=== PATIENT | female | born 1990 | race Caucasian/White ===

== ENCOUNTER 2021-03-12 22:51 | Emergency (ER) | payer MEDICAID ==
[~2021-03-12] VITALS: Ht 175.3 cm; Wt 84.1 kg
[2021-03-13 01:52] LABS: BASOPHILS % (AUTO) 0.1 % (0-1); EOSINOPHILS # (AUTO) 0.1 X10'3 (0-0.9); EOSINOPHILS % (AUTO) 0.5 % (0-6); HEMATOCRIT 35.1 % (35.0-45.0); LYMPHOCYTES # (AUTO) 1.4 X10'3 (1.1-4.8); LYMPHOCYTES % (AUTO) 12.2 % (21-51); MEAN CORPUSCULAR HEMOGLOBIN 29.3 PG (27.0-31.0); MEAN CORPUSCULAR HGB CONC 34.1 g/dL (33.0-36.5); MEAN CORPUSCULAR VOLUME 86.1 FL (78-98); MEAN PLATELET VOLUME 6.8 FL (7.4-10.4); MONOCYTES # (AUTO) 0.5 X10'3 (0-0.9); MONOCYTES % (AUTO) 4.4 % (2-12); NEUTROPHILS # (AUTO) 9.2 X10'3 (1.8-7.7); NEUTROPHILS % (AUTO) 82.8 % (42-75); PLATELET COUNT 314 X10'3 (140-440); RED BLOOD COUNT 4.08 X10'6 (4.20-5.60); RED CELL DISTRIBUTION WIDTH 13.2 % (11.5-14.5); WHITE BLOOD COUNT 11.1 X10'3 (4.5-11.0)
[2021-03-13 02:06] LABS: ALANINE AMINOTRANSFERASE 14 U/L (12-78); ALBUMIN 3.8 G/DL (3.4-5.0); ALBUMIN/GLOBULIN RATIO 1.2 (1.1-1.5); ALKALINE PHOSPHATASE 76 IU/L (46-116); ANION GAP 5 (8-16); ASPARTATE AMINO TRANSFERASE 12 U/L (10-37); BILIRUBIN,TOTAL 0.5 MG/DL (0.1-1.0); BLOOD UREA NITROGEN 16 MG/DL (7-18); BUN/CREATININE RATIO 18.6 (6.6-38.0); CALCIUM 8.5 MG/DL (8.5-10.1); CHLORIDE 103 MMOL/L (99-107); CREATININE 0.86 MG/DL (0.40-0.90); ETHANOL < 0.010 GM/DL (0.0-0.010); GLUCOSE 99 MG/DL (70-104); POTASSIUM 3.8 MMOL/L (3.5-5.1); SODIUM 134 MMOL/L (135-145); TOTAL CARBON DIOXIDE 26.2 MMOL/L (24-32); TOTAL PROTEIN 7.1 G/DL (6.4-8.2); eGFR 78 ML/MIN
--- NOTE | 2021-03-13 02:25 | NUR ---
PT CHANGED INTO SCRUBS, BELONGINGS LIST COMPLETED. PT UNDERSTANDS HER DOG WILL NEED TO BE [facility] UNLESS THERE IS A FRIEND OR SOMEONE WHO CAN COME AND GET IT.
--- NOTE | 2021-03-13 02:31 | NUR ---
CALLED [facility] AND NEED TO CALL BACK AT 0700 WHEN THEY ARE AVAILABLE TO TAKE NON EMERGENT PHONE CALLS.
--- NOTE | 2021-03-13 02:33 | NUR ---
PT AMBULATORY TO BATHROOM WITH STEADY GAIT, ABLE TO LEAVE U/A
--- NOTE | 2021-03-13 03:00 | NUR ---
PT RESTING IN BED WITH HER DOG. HAS NO COMPLAINTS OR CONCERNS
[2021-03-13 03:23] LABS: URINE HCG NEGATIVE (NEG)
[2021-03-13] MEDS ORDERED: FLUO40CA PO (03:23)
[2021-03-13] MEDS ORDERED: VENL25TA48 PO (03:24)
[2021-03-13] MEDS ORDERED: BUPR150T8 PO (03:27)
[2021-03-13] MEDS ORDERED: DUTA0.5C40 PO (03:27)
[2021-03-13] MEDS ORDERED: PROG200C11 PO (03:27)
[2021-03-13] MEDS ORDERED: QUET-1 PO (03:29)
[2021-03-13] MEDS ORDERED: ESTR40VI4 IM (03:36)
[2021-03-13] MEDS ORDERED: BENZ1TAB7 PO (03:36)
--- NOTE | 2021-03-13 04:00 | NUR ---
PT IN BED ON RIGHT SIDE. RESPIRATIONS EVEN AND UNLABORED. SHOWS NO S/S OF ACUTE DISTRESS/
[2021-03-13 04:23] LABS: URINE AMPHETAMINE SCREEN NEGATIVE (Neg); URINE BARBITUATE SCREEN NEGATIVE (Neg); URINE BENZODIAZEPINES SCREEN NEGATIVE (Neg); URINE CANNABINOID SCREEN POSITIVE (Neg); URINE COCAINE SCREEN NEGATIVE (Neg); URINE METHADONE SCREEN NEGATIVE (Neg); URINE OPIATE SCREEN NEGATIVE (Neg); URINE PHENCYCLIDINE SCREEN NEGATIVE (Neg)
--- NOTE | 2021-03-13 05:47 | NUR ---
PT HAS DOG AT HER SIDE. PT IS DEMONSTRATING APPROPRIATE BEHAVIOR. HAS NO COMPLAINTS OR REQUESTS.
--- NOTE | 2021-03-13 05:51 | NUR ---
PACKET SENT TO [facility]
--- NOTE | 2021-03-13 07:33 | NUR ---
PT SLEEPING IN BED WITH DOG AT BEDSIDE
--- NOTE | 2021-03-13 07:42 | NUR ---
CALLED [facility], LEFT MESSAGE. AWAITING CALL BACK.
[2021-03-13] MEDS ORDERED: FLUoxetine 20mg capsule PO SCH (08:00)
[2021-03-13] MEDS ORDERED: dutasteride 0.5 MG capsule PO SCH (08:00)
[2021-03-13] MEDS ORDERED: buPROPion SR 150mg tablet PO SCH (08:00)
[2021-03-13] MEDS ORDERED: venlafaxine 25mg tablet PO SCH (08:00)
[2021-03-13 09:07] VITALS: BP 103/66
--- NOTE | 2021-03-13 09:38 | NUR ---
spoke with friend ami on phone, stated she could watch dog. pt agrees. Ami stated she was coming to get the dog.
--- NOTE | 2021-03-13 13:35 | NUR ---
Pt given d/c instructions. She refused to sign her paper. Left the department.
[2021-03-13] MEDS ORDERED: benztropine 1mg tablet PO SCH (21:00)
[2021-03-13] MEDS ORDERED: QUEtiapine 25mg tablet PO SCH (21:00)
[2021-03-13] MEDS ORDERED: progesterone, micronized 100mg capsule PO SCH (21:00)
[2021-03-15] MEDS ORDERED: ESTRADIOL VALERATE 40 MG/ML IM SCH (08:00)
== END 2021-03-13 13:38 | disposition home or self-care (01) ==
LOC: ER 22:52
DX: F43.20 Adjustment disorder, unspecified (principal); Z20.822 Contact with and (suspected) exposure to COVID-19; R45.851 Suicidal ideations; F32.9 Major depressive disorder, single episode, unspecified; Z79.899 Other long term (current) drug therapy
CPT/HCPCS: 36415; 80053; 80305; 80320; 81025; 85025; 87635; 99284; C9803

== ENCOUNTER 2021-03-27 14:53 | Inpatient (IN) | payer MEDICAID ==
[~2021-03-27] VITALS: Ht 175.3 cm; Wt 88.0 kg
[~2021-03-27 14:53] MED LIST: BENZ1TAB7 PO; BUPR150T8 PO; DUTA0.5C40 PO; ESTR40VI4 IM; FLUO40CA PO; PROG200C11 PO; QUET-1 PO; VENL25TA48 PO
[2021-03-27 15:50] LABS: BASOPHILS % (AUTO) 0 % (0-1); EOSINOPHILS % (AUTO) 0.3 % (0-6); HEMATOCRIT 35.8 % (35.0-45.0); HEMOGLOBIN 11.6 g/dl (12.0-16.0); LYMPHOCYTES # (AUTO) 1.5 X10'3 (1.1-4.8); LYMPHOCYTES % (AUTO) 12.2 % (21-51); MEAN CORPUSCULAR HEMOGLOBIN 29.4 PG (27.0-31.0); MEAN CORPUSCULAR HGB CONC 32.5 g/dL (33.0-36.5); MEAN CORPUSCULAR VOLUME 90.4 FL (78-98); MONOCYTES # (AUTO) 0.6 X10'3 (0-0.9); MONOCYTES % (AUTO) 5.1 % (2-12); NEUTROPHILS % (AUTO) 82.4 % (42-75); PLATELET COUNT 312 X10'3 (140-440); RED BLOOD COUNT 3.96 X10'6 (4.20-5.60); RED CELL DISTRIBUTION WIDTH 13.6 % (11.5-14.5); WHITE BLOOD COUNT 12.1 X10'3 (4.5-11.0)
[2021-03-27 15:58] LABS: ALANINE AMINOTRANSFERASE 22 U/L (12-78); ALBUMIN 3.6 G/DL (3.4-5.0); ALBUMIN/GLOBULIN RATIO 1.1 (1.1-1.5); ALKALINE PHOSPHATASE 74 IU/L (46-116); ANION GAP 8 (8-16); ASPARTATE AMINO TRANSFERASE 11 U/L (10-37); BILIRUBIN,TOTAL 0.2 MG/DL (0.1-1.0); BLOOD UREA NITROGEN 18 MG/DL (7-18); CALCIUM 8.7 MG/DL (8.5-10.1); CHLORIDE 107 MMOL/L (99-107); CREATININE 0.75 MG/DL (0.40-0.90); GLUCOSE 99 MG/DL (70-104); POTASSIUM 4.6 MMOL/L (3.5-5.1); SODIUM 142 MMOL/L (135-145); TOTAL CARBON DIOXIDE 27.4 MMOL/L (24-32); eGFR > 90 ML/MIN
[2021-03-27 16:07] LABS: ETHANOL < 0.010 GM/DL (0.0-0.010)
--- NOTE | 2021-03-27 16:55 | NUR ---
Received pat Overflow at 1635. Pt ambulated independently with PCT and security. [facility] wrote 5150 for DTS. Pt stating "I will kill myself if Brady (pt's partner) leaves." Pt was calm and cooperative with admissioni process. Pt changed into green scrubs and belongings list completed. Pt declined to verbally answer questions and used head and shoulder gestures. Pt currently denies suicidal thoughts, A/VH. Pt is transgender male to female. Pt has a pacifier in her mouth and wouldn't hand it over to machine sign writer. Attachment string was taken off and pt kept stuffed animal and pacifer. Pt is unkempt.
--- NOTE | 2021-03-27 17:30 | NUR ---
Urine collected and sent to laboratory.
[2021-03-27] MEDS ORDERED: VENL75CA61 PO (18:41)
[2021-03-27 18:42] LABS: URINE AMPHETAMINE SCREEN NEGATIVE (Neg); URINE BARBITUATE SCREEN NEGATIVE (Neg); URINE BENZODIAZEPINES SCREEN NEGATIVE (Neg); URINE CANNABINOID SCREEN NEGATIVE (Neg); URINE COCAINE SCREEN NEGATIVE (Neg); URINE METHADONE SCREEN NEGATIVE (Neg); URINE OPIATE SCREEN NEGATIVE (Neg); URINE PHENCYCLIDINE SCREEN NEGATIVE (Neg)
[2021-03-27] MEDS ORDERED: MIRT-116 PO (18:43)
[2021-03-27 18:50] LABS: COLOR,URINE YELLOW (Yellow); UA COLLECTION TYPE CLN CATCH MIDSTREAM
[2021-03-27 18:51] LABS: CLARITY,URINE CLEAR (Clear); GLUCOSE, URINE NEGATIVE (Neg); KETONES,URINE NEGATIVE (Neg); LEUKOCYTE ESTERASE ,URINE NEGATIVE (Neg); NITRITES, URINE NEGATIVE (Neg); OCCULT BLOOD,URINE NEGATIVE (Neg); PROTEIN,URINE NEGATIVE (Neg); UROBILINOGEN,URINE 0.2 E.U/dL (0.2-1.0)
--- NOTE | 2021-03-27 19:46 | NUR ---
The patient has been watching the nurses station holding a stuffed animal and sucking on a pacifier. She is talking in baby talk. When asked if she was a danger to herself or others she stated, "I don't know" When asked if she was having auditory or visual hallucinations she stated "I don't think so" When asked how her mood was she stated, "I don't know"
[2021-03-27] MEDS: mirtazapine 15mg tablet PO PRN (20:19)
[2021-03-27] MEDS: progesterone, micronized 100mg capsule PO SCH (20:19)
[2021-03-27] MEDS ORDERED: LORazepam 1 MG tablet PO ONE (20:40)
--- NOTE | 2021-03-27 20:41 | NUR ---
The patient up and moaning and reports high anxiety. MD made aware and orders received.
--- NOTE | 2021-03-27 20:44 | NUR ---
The patient whimpering and making frequent contact with staff at the nursing station. He is very dramatic.
--- NOTE | 2021-03-27 21:07 | NUR ---
The patient is up at the station telling staff they will have to put him in 4 point restraints but he is calm and being very manipulative.
[2021-03-27] MEDS ORDERED: OLANZapine 5mg rapidly disint. tablet PO ONE (21:15)
--- NOTE | 2021-03-28 00:01 | NUR ---
The patient appears to be sleeping
--- NOTE | 2021-03-28 01:34 | NUR ---
The patient appears to be sleeping
--- NOTE | 2021-03-28 02:31 | NUR ---
The patient appears to be sleeping
--- NOTE | 2021-03-28 04:37 | NUR ---
The patient appears to be sleeping
--- NOTE | 2021-03-28 06:30 | NUR ---
Received patient sleeping comfortably, curled up with blankets pulled up to her neck. Respirations even and unlabored.
--- NOTE | 2021-03-28 08:25 | NUR ---
Pt in bed eating breakfast. Pt was compliant with 1:1 assessment and medication. Pt continues to endorse suicidal thoughts with a plan to utilize carbon monoxide from his car. Pt states his mood "I'm sleepy." Pt was administered Zyprexa zydis last night at 2130. Pt denies auditory and visual hallucinations with a nod of his head. Pt was sleeping with the pacifer in his mouth. When asked why he uses it pt states "I don't know."
[2021-03-28] MEDS: venlafaxine XR 75mg capsule (Q24H) PO SCH (09:08)
[2021-03-28] MEDS: dutasteride 0.5 MG capsule PO SCH (09:09)
--- NOTE | 2021-03-28 10:25 | NUR ---
Pt awake talking on phone. Pt is talking baby talk and whining.
--- NOTE | 2021-03-28 11:16 | NUR ---
PACKET FAXED TO [facility] OFFICE FOR 2ND TIME. INITIALLY AT 0902.
--- NOTE | 2021-03-28 11:25 | NUR ---
Pt came up to nurses station asking "I'm a wittle hungry." Pt speaks in baby talk "I'm wittle." Machining Associate reinforced the appropriate way to speak. Pt spoke in normal tone yesterday. While tag writer spoke with pt she grabbed her stuffed animal and hid her face.
--- NOTE | 2021-03-28 13:22 | NUR ---
Pt resting comfortably, arousable by name. No distress noted.
[2021-03-28] MEDS ORDERED: [UNRECOGNIZED DRUG - CODE] TOP (14:51)
--- NOTE | 2021-03-28 15:15 | NUR ---
Pt had personal documents to include legal papers at bedside. Cementing Machine Operator suggested that papers be placed in locker. Pt at first was reluctant, but asked if feature writer could assist her in making a list of papers. Pt states "I have dyslexia and it causes me to not be able to read my own handwriting." Cementing Machine Operator assisted pt with list, encouraging her to participate. Papers were locked in #24 locker. 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 Pt states "I just can't work any more." "I am tired." "I have lived more life then most 70 year olds." "I am just tired." Pt endorses passive suicidal thoughts, at this moment has no plan. Addendum: 03/28/21 at 1531 by MARILYN Pt states the reason for the pacificer is it helps "with the oral fixation" r/t smoking. Pt states it works better than nicotine lozenges. Pt states she is trying to stop smoking r/t being on estrogen and the risk of blood clots. Pt spoke in normal tone, she did not revert to baby talk.
[2021-03-28] MEDS ORDERED: OLANZapine 5mg rapidly disint. tablet PO ONE (16:10)
--- NOTE | 2021-03-28 16:10 | NUR ---
1550 Patient banging head against the wall. RN and tech got him up to bed. Patient would not stop. Patient states "You might as well put me in restraints. I am loosing it." Patient continues to say to put him in restraints. [address] Blanchard to eval patient. Got order for 10 mg Zyprexa now and 10 mg daily. Continue to monitor.
--- NOTE | 2021-03-28 16:52 | NUR ---
Pt was administerd Zyprex zydis 10mg with effect. Pt is lying on bed talking on phone, conversation is appropriate. Pt calm.
--- NOTE | 2021-03-28 19:00 | NUR ---
Received pt awake in bed talking on telephone and has offered no complaints. Pt cooperative with assessment.
[2021-03-28] MEDS: progesterone, micronized 100mg capsule PO SCH (20:28)
[2021-03-28] MEDS: EFLORNITHINE HCL TP SCH (20:28)
[2021-03-28] MEDS: mirtazapine 15mg tablet PO PRN (20:30)
--- NOTE | 2021-03-28 21:00 | NUR ---
Pt remained on the phone for a while. When he got off, we got him a snack and his medications which he took with no issue and he requested remeron for sleep which was given. He did request more food but accepted without issue the answer of "no".
--- NOTE | 2021-03-28 23:00 | NUR ---
Pt sleeping peacefully without signs of distress.
--- NOTE | 2021-03-29 01:00 | NUR ---
Pt remains asleep without signs of distress.
--- NOTE | 2021-03-29 03:00 | NUR ---
Pt up once to the bathroom, then returned to sleep.
--- NOTE | 2021-03-29 05:00 | NUR ---
Pt up to the bathroom and then returned to bed without complaints or requests.
--- NOTE | 2021-03-29 07:00 | NUR ---
Received Pt awake and at nurses station. Pt returned to his bed and appears to be sleeping w/o distress.
[2021-03-29] MEDS: venlafaxine XR 75mg capsule (Q24H) PO SCH (08:37)
[2021-03-29] MEDS: dutasteride 0.5 MG capsule PO SCH (08:37)
[2021-03-29] MEDS: OLANZapine 5mg rapidly disint. tablet PO SCH (08:38)
[2021-03-29] MEDS: EFLORNITHINE HCL TP SCH ×2 (08:39→20:05)
--- NOTE | 2021-03-29 09:00 | NUR ---
Pt woke for breakfast and took AM meds w/o issue. Overall cooperative but demanding at times with entitled attitude throughout.
[2021-03-29] MEDS: ESTRADIOL VALERATE 200 MG/5 ML IM SCH (11:34)
--- NOTE | 2021-03-29 11:45 | NUR ---
Pt received IM estroidal w/o issue. Pt laying in bed and requesting snacks frequently.
--- NOTE | 2021-03-29 19:00 | NUR ---
Pt sitting in bed eating dinner. States +SI and has a plan to get in her car with a can of gas and drive off a [place]. States she also has some depression and anxiety. PT awaiting to transfer to [facility].
[2021-03-29] MEDS: mirtazapine 15mg tablet PO PRN (20:05)
[2021-03-29] MEDS: progesterone, micronized 100mg capsule PO SCH (20:05)
--- NOTE | 2021-03-29 20:57 | NUR ---
pt resting in bed quietly, no distress noted.
--- NOTE | 2021-03-29 21:43 | NUR ---
pt appears to be sleeping, holding a stuffed animal and sucking on a pacifier, no distress noted.
[2021-03-30] MEDS ORDERED: acetaminophen 325mg tablet PO PRN ×2 (00:10)
[2021-03-30] MEDS ORDERED: mag hydrox/Alum hydrox/simeth 30ml oral suspension PO PRN (00:10)
[2021-03-30] MEDS ORDERED: loperamide 2mg capsule PO PRN (00:10)
[2021-03-30] MEDS ORDERED: traZODone 50mg tablet PO PRN (00:10)
[2021-03-30] MEDS ORDERED: magnesium hydroxide 30ml (MOM) UD suspension PO PRN (00:10)
[2021-03-30 00:30] VITALS: BP 122/74
--- NOTE | 2021-03-30 02:31 | NUR ---
SALES SERVICE EXECUTIVE NOTE: LEGAL HOLD: 5150 for DTS PSYCH HX: ADHD, Autism Spectrum, Depression/Anxiety, Personality DO REASON FOR ADMIT: Client BIB EMS after being bitten by his therapy dog. Client reported suicidal ideation due to possible loss of therapy dog. Hx of depression and multiple suicide attempts via overdose. Client has been in [facility]. Client is currently transitioning from male to female. THIS SHIFT: Client arrived on the unit at 00:15 in a wheelchair accompanied by Xena Lee. Vital signs were obtained, client showered, and a 2 RN Skin assessment was performed. Client arrived carrying a soiled stuffed animal. This RN spoke with client in his room. Client was cooperative. Client was anxious about his appearance and wanted to shave and apply a prescription cream to his face. Levi Mitchell was present while client shaved. Abran Arce admin 10 mg Ambien PO and 1 mg Ativan PO. Client gesticulates when he talks and is emotive.
[2021-03-30] MEDS ORDERED: EFLORNITHINE HCL TP ONE (02:35)
[2021-03-30] MEDS: zolpidem 5mg tablet PO PRN ×2 (02:58→21:37)
[2021-03-30 08:00] VITALS: BP 115/75
[2021-03-30] MEDS ORDERED: naproxen sodium 220mg tablet PO SCH (08:00)
[2021-03-30] MEDS: OLANZapine 5mg rapidly disint. tablet PO SCH (08:00)
[2021-03-30] MEDS: venlafaxine XR 75mg capsule (Q24H) PO SCH (08:40)
[2021-03-30] MEDS: EFLORNITHINE HCL TP SCH ×2 (08:42→19:35)
[2021-03-30] MEDS: dutasteride 0.5 MG capsule PO SCH (08:42)
[2021-03-30] MEDS ORDERED: naproxen sodium 220mg tablet PO PRN (08:55)
[2021-03-30] MEDS: LORazepam 1 MG tablet PO PRN ×2 (09:09→17:22)
[2021-03-30] MEDS: nicotine 21mg patch - 24 hr TD SCH (09:18)
[2021-03-30] MEDS: NICOTINE POLACRILEX 2 MG LOZENGE BC PRN ×3 (15:22→19:35)
[2021-03-30] MEDS ORDERED: OLANZapine 5mg rapidly disint. tablet PO PRN (16:15)
--- NOTE | 2021-03-30 17:41 | NUR ---
Nursing Progress Note: Charisma Anthony Legal hold: 5150 Client on involuntary status for DTS Report received from Sun Méndez RN with use of SBAR Why are they here: Client BIB EMS after being bitten by her therapy dog. Client reported suicidal ideation due to possible loss of therapy dog. Hx of depression and multiple suicide attempts via overdose. Client has been in [facility]. Client is currently transitioning from male to female. Assessment What has happened this shift: Patient was observed sleeping in bed at change of shift. She joined in the community room with peers for breakfast, noted socializing appropriately. She was observed to be animated, child-like, and pleasant on this shift. She carried around a soiled stuffed animal and a rad pacifier that she regresses to when she is anxious. 1:1 assessment completed, lungs CTA. She refused her RTN Zyprexa this morning, stating that is makes her feel like a zombie. MD Navarrete notified. Patient noted pacing around the unit with her stuffed animal around 0900 endorsing anxiety over another patient on the unit. She was given PRN Ativan 1mg with effectiveness. She denies SI/HI, AH or VH. Does not appear internally preoccupied. She was observed sleeping for a couple hours later in the morning. She endorsed to this fiction writer that she is happy to be on this unit now and actually get the therapy that she needs. Patient participated in group therapy on this shift, noted engaging appropriately with peers. She was observed sitting with peers coloring a picture, watching television, and socializing appropriately throughout the day. Patient approached this fiction writer at approximately 1720 requesting PRN Ativan for c/o anxiety. Given with effectiveness. Patient participated in the community room for all meal/snack times. S/I, H/I: Pt denies A/VH: Pt denies. Does not appear internally preoccupied. Sleep: Pt slept 2.25 hours last night per NOC shift, napped for 2 hours today ADL's: Independent Group attendance: Yes Were meds taken: Patient refused RTN Zyprexa Any med S/E: None reported or observed Mental Status Exam Appearance: Freshly groomed and shaved face, colorful short hair, wearing a fancy green dress Eye contact: Good Behavior: Social with peers, polite, cooperative Speech: Clear, hyper verbal at times Mood: Happy, pleasant, hopeful, anxious at times Affect: Animated Thought process: Linear Thought Content: Meeting needs. Hopeful for future. Cognition: A&O x3 Insight: Poor Judgment: Poor Interventions PRN's used: Ativan 1mg PO Therapeutic interventions: Maintained a safe and supportive environment, 1:1 assessment, ensured contract for safety, provided clear and simple instructions, monitored behaviors and maintained clear boundaries, provided active listening and positive encouragement, monitored V/S, medication education/administration/monitoring, and maintained Q 15min safety checks. Restraints/seclusion/emergency medication: N/A Justification of Continued Inpatient Treatment: Patient continues to require a safe and therapeutic environment, medication adjustment/monitoring, and crisis intervention.
[2021-03-30 20:30] VITALS: BP 133/74
[2021-03-30] MEDS: mirtazapine 15mg tablet PO SCH (21:38)
[2021-03-30] MEDS: progesterone, micronized 100mg capsule PO SCH (21:39)
[2021-03-30] MEDS: gabapentin 300mg capsule PO SCH (21:39)
--- NOTE | 2021-03-31 02:47 | NUR ---
Nursing Progress Note: Charisma Anthony Legal hold: 5150 Client on involuntary status for DTS Report received from TRICE Ch with use of SBAR Why are they here: Client BIB EMS after being bitten by her therapy dog. Client reported suicidal ideation due to possible loss of therapy dog. Hx of depression and multiple suicide attempts via overdose. Client has been in [facility]. Client is currently transitioning from male to female. Assessment What has happened this shift: Following shift change, patient was observed walking with stuffed animal in the hallway. Patient presented with mild anxiety and came to the nursing station requesting medications on multiple occasions. 1:1 interview in patient's room. Patient was initially quiet during the interview with poor eye contact and pressured speech. With coaching and reassurance, patient became more relaxed and cooperative. Patient expresses concern about her therapy dog, which bit her as well as another person. Patient describes pending criminal charges for battery in [place]. She also expresses concern about the possibility of being housed in a male fci in [place], "and if that happens, I will kill myself." Patient identifies as female. Patient does admit to suicidal ideation, with a plan to use a lethal gas in the car that would absorb all the oxygen content, therefore enabling her to peacefully through asphyxiation. Patient describes herself as being depressed. She has a flat affect. The conversation was redirected by this fiction and nonfiction writer prose with some light humor inputted into the conversation. Patient's eye contact improved dramatically and she presents with laughter. Patient denies homicidal ideation and/or hallucinations. She is medication compliant and cooperative. She is a transgender female. S/I, H/I: Patient endorses S/I. Denies H/I. A/VH: Denies. Sleep: Will tally sleep hours at 0500. ADL's: Independent Group attendance: No group on candle molder hand. Were meds taken: Patient is medication compliant. Any med S/E: None reported or observed Mental Status Exam Appearance: Clean and well groomed. Wearing a long dress. Eye contact: Intermittent. Behavior: Pleasant and cooperative. Speech: Slow and soft. Mood: Depressed with some brightening. Affect: Blunted. Thought process: Linear. Thought Content: Feeling depressed. Concerned about her dog. Suicidal ideation and possibility of incarceration at a male fci in [place]. Cognition: A&O x4 Insight: Poor Judgment: Poor Interventions PRN's used: Ambien 5 mg PO Therapeutic interventions: Maintained a safe and supportive environment, 1:1 assessment, ensured contract for safety, provided clear and simple instructions, monitored behaviors and maintained clear boundaries, provided active listening and positive encouragement, monitored V/S, medication education/administration/monitoring, and maintained Q 15min safety checks. Restraints/seclusion/emergency medication: N/A Justification of Continued Inpatient Treatment: Patient continues to require a safe and therapeutic environment, medication adjustment/monitoring, and crisis intervention.
[2021-03-31] MEDS: gabapentin 300mg capsule PO SCH ×3 (08:09→20:58)
[2021-03-31] MEDS: dutasteride 0.5 MG capsule PO SCH (08:09)
[2021-03-31] MEDS: venlafaxine XR 75mg capsule (Q24H) PO SCH (08:09)
[2021-03-31] MEDS: EFLORNITHINE HCL TP SCH ×2 (08:10→20:58)
[2021-03-31] MEDS: nicotine 21mg patch - 24 hr TD SCH (08:10)
[2021-03-31] MEDS: methylphenidate 5mg tablet PO SCH ×2 (08:10→13:57)
[2021-03-31] MEDS: LORazepam 1 MG tablet PO PRN (08:19)
[2021-03-31 08:59] VITALS: BP 114/61
[2021-03-31] MEDS: NICOTINE POLACRILEX 2 MG LOZENGE BC PRN ×4 (09:43→19:25)
[2021-03-31 10:04] LABS: CHOLESTEROL 179 MG/DL (0-200); HDL CHOLESTEROL 60 MG/DL (35-60); LDL CHOLESTEROL 101 MG/DL (50-100); TRIGLYCERIDES 145 MG/DL (20-135)
[2021-03-31 10:09] LABS: HEMOGLOBIN A1C 4.3 % (4.5-6.2)
--- NOTE | 2021-03-31 11:52 | NUR ---
Critical lab: Lab called and pt is positive for MRSA. Spoke with pt and explained about washing hands.
--- NOTE | 2021-03-31 17:07 | NUR ---
Nursing Progress Note: Legal hold: 5150 Client on involuntary status for DTS Report received from RN with use of SBAR Why are they here: Client BIB EMS after being bitten by her therapy dog. Client reported suicidal ideation due to possible loss of therapy dog. Hx of depression and multiple suicide attempts via overdose. Client has been in [facility]. Client is currently transitioning from male to female. Assessment What has happened this shift: Received Pt in room sleeping w/o distress. Pt woke and took AM meds and was cooperative with vitals and AM assessments. Pt took AM meds w/o issue and was cooperative with anxiety and pacing of halls throughout day. Pt ate all meals in community room and socialized with females of similar age. Pt appeared anxious in AM and received prn Ativan and dominic lozs. Pt denies SI, but stated I need meds like Ativan to help me deal with life when I leave. Pt handed this RN a list of lab work that, stating it needs to be done. The list was handed to Dr Forrest and pt told to speak with him about the needed lab work. Pt used head phones throughout the day, avoiding the yelling of another Pt, which was triggering. Pt appeared less anxious in afternoon after taking a nap. Pt denies SI/HI, AH or VH. Does not appear internally preoccupied. S/I, H/I: Pt denies A/VH: Pt denies. Does not appear internally preoccupied. Sleep: Pt napped in afternoon ADL's: Independent Group attendance: NA Were meds taken: Yes Any med S/E: None reported or observed Mental Status Exam Appearance: Casual, well groomed Eye contact: Good Behavior: Social with peers, anxious, cooperative Speech: Clear, hyper verbal at times Mood: Anxious Affect: Animated Thought process: Linear Thought Content: Meeting needs Cognition: A&O x3 Insight: Poor Judgment: Poor Interventions PRN's used: Ativan 1mg, Dominic Addison. Therapeutic interventions: Maintained a safe and supportive environment, 1:1 assessment, ensured contract for safety, provided clear and simple instructions, monitored behaviors and maintained clear boundaries, provided active listening and positive encouragement, monitored V/S, medication education/administration/monitoring, and maintained Q 15min safety checks. Restraints/seclusion/emergency medication: N/A Justification of Continued Inpatient Treatment: Patient continues to require a safe and therapeutic environment, medication adjustment/monitoring, and crisis intervention.
[2021-03-31] MEDS ORDERED: clonazePAM 1mg tablet PO PRN (17:30)
[2021-03-31 19:27] VITALS: BP 122/81
[2021-03-31] MEDS: progesterone, micronized 100mg capsule PO SCH (20:58)
[2021-03-31] MEDS: mirtazapine 15mg tablet PO SCH (20:58)
--- NOTE | 2021-04-01 02:57 | NUR ---
Legal hold: 5150 Client on involuntary status for DTS Report received from Kunal Leone RN with use of SBAR Why are they here: Client BIB EMS after being bitten by her therapy dog. Client reported suicidal ideation due to possible loss of therapy dog. Hx of depression and multiple suicide attempts via overdose. Client has been in [facility]. Client is currently transitioning from male to female. Assessment What has happened this shift: Following shift change, patient was observed ambulating around the unit carrying a stuffed animal. Patient exhibited intrusive behavior, injecting herself into other patient interviews that were being conducted by this scientific writer. Patient complained of being depressed, yet he was smiling and joking at the same time. Patient requested additional food and states she needed more food in order for her breasts to continue to grow. Patient declares that she is still suicidal with the same plan as before, which was the use of lethal gas to asphyxiate herself in a vehicle. She tells this scientific writer its the most effective and most comfortable way to go. Patient denies homicidal ideation or hallucinations. S/I, H/I: Patient endorses S/I. Denies H/I. A/VH: Denies. Sleep: Will tally sleep hours at 0500. ADL's: Independent Group attendance: No group on night clerk. Were meds taken: Patient is medication compliant. Any med S/E: None reported or observed Mental Status Exam Appearance: Clean and well groomed. Wearing a dress. Eye contact: Intermittent. Behavior: Pleasant and cooperative. Speech: Slow and soft. Mood: Patient states depression but does not present as such. Affect: Blunted. Thought process: Linear. Thought Content: Feeling depressed. Concerned about her dog. Suicidal ideation and possibility of incarceration at a male half-way in [place]. Cognition: A&O x4 Insight: Poor Judgment: Poor Interventions PRN's used: Nicotine Lozenge 2mg PO Therapeutic interventions: Maintained a safe and supportive environment, 1:1 assessment, ensured contract for safety, provided clear and simple instructions, monitored behaviors and maintained clear boundaries, provided active listening and positive encouragement, monitored V/S, medication education/administration/monitoring, and maintained Q 15min safety checks. Restraints/seclusion/emergency medication: N/A Justification of Continued Inpatient Treatment: Patient continues to require a safe and therapeutic environment, medication adjustment/monitoring, and crisis intervention. Addendum: 04/01/21 at 0308 by Abran Bright RN The above should have been titled nursing progress note.
--- NOTE | 2021-04-01 03:08 | NUR ---
Nursing Progress Note Legal hold: 5150 Client on involuntary status for DTS Report received from Kunal Leone RN with use of SBAR Why are they here: Client BIB EMS after being bitten by her therapy dog. Client reported suicidal ideation due to possible loss of therapy dog. Hx of depression and multiple suicide attempts via overdose. Client has been in [facility]. Client is currently transitioning from male to female. Assessment What has happened this shift: Following shift change, patient was observed ambulating around the unit carrying a stuffed animal. Patient exhibited intrusive behavior, injecting herself into other patient interviews that were being conducted by this production underwriter. Patient complained of being depressed, yet he was smiling and joking at the same time. Patient requested additional food and states she needed more food in order for her breasts to continue to grow. Patient declares that she is still suicidal with the same plan as before, which was the use of lethal gas to asphyxiate herself in a vehicle. She tells this production underwriter its the most effective and most comfortable way to go. Patient denies homicidal ideation or hallucinations. S/I, H/I: Patient endorses S/I. Denies H/I. A/VH: Denies. Sleep: Will tally sleep hours at 0500. ADL's: Independent Group attendance: No group on night club manager. Were meds taken: Patient is medication compliant. Any med S/E: None reported or observed Mental Status Exam Appearance: Clean and well groomed. Wearing a dress. Eye contact: Intermittent. Behavior: Pleasant and cooperative. Speech: Slow and soft. Mood: Patient states depression but does not present as such. Affect: Blunted. Thought process: Linear. Thought Content: Feeling depressed. Concerned about her dog. Suicidal ideation and possibility of incarceration at a male retirement in [place]. Cognition: A&O x4 Insight: Poor Judgment: Poor Interventions PRN's used: Nicotine Lozenge 2mg PO Therapeutic interventions: Maintained a safe and supportive environment, 1:1 assessment, ensured contract for safety, provided clear and simple instructions, monitored behaviors and maintained clear boundaries, provided active listening and positive encouragement, monitored V/S, medication education/administration/monitoring, and maintained Q 15min safety checks. Restraints/seclusion/emergency medication: N/A Justification of Continued Inpatient Treatment: Patient continues to require a safe and therapeutic environment, medication adjustment/monitoring, and crisis intervention.
[2021-04-01] MEDS: dutasteride 0.5 MG capsule PO SCH (07:42)
[2021-04-01] MEDS: gabapentin 300mg capsule PO SCH ×3 (07:43→20:21)
[2021-04-01] MEDS: methylphenidate 5mg tablet PO SCH ×2 (07:43→13:20)
[2021-04-01] MEDS: venlafaxine XR 75mg capsule (Q24H) PO SCH (07:43)
[2021-04-01] MEDS: nicotine 21mg patch - 24 hr TD SCH (07:44)
[2021-04-01] MEDS: EFLORNITHINE HCL TP SCH ×2 (07:45→20:21)
[2021-04-01 08:05] VITALS: BP 111/76
[2021-04-01] MEDS: NICOTINE POLACRILEX 2 MG LOZENGE BC PRN (09:49)
--- NOTE | 2021-04-01 17:15 | NUR ---
Nursing Progress Note: [facility] [employer] hold: 5250 Client on involuntary status for DTS Report received from TRICE Osullivan with use of SBAR. Why are they here: Client BIB EMS after being bitten by her therapy dog. Client reported suicidal ideation due to possible loss of therapy dog. Hx of depression and multiple suicide attempts via overdose. Client has been in [facility]. Client is currently transitioning from male to female. Assessment What has happened this shift: Received patient awake in her room at shift change. Pt was cooperative with care and medications. Pt continues to endorse resolving suicidal thoughts pt states I just want to raise my three kids. I need a family welfare social work professor to help put my life back together. [facility] just kicked me out. Pt relates recent episode to losing her service dog. Pt feels she needs 24-hour care. I used to have my service dog and now I have no one. Pt is very friendly with a group of female peers. Talking most of the day, applying makeup and nail american. Pt states she is depressed, but at the same time she is laughing and joking. S/I, H/I: Resolving suicidal thoughts. A/VH: Pt denies. Does not appear internally preoccupied. Sleep: 6.25 hours per sleep assessment. No naps today. ADL's: Independent. Pt shaved. Group attendance: No scheduled group. Were meds taken: Yes, without issue. Any med S/E: None reported or observed Mental Status Exam Appearance: Casual, well groomed. Bright make-up, hair pulled back into two high ponytails. Eye contact: Good Behavior: Social with peers, cooperative Speech: Clear, hyper verbal at times Mood: Feeling depressed. Affect: Animated Thought process: Linear Thought Content: Meeting needs Cognition: A&O x3 Insight: Poor Judgment: Poor Interventions PRN's used: None Therapeutic interventions: Maintained a safe and supportive environment, 1:1 assessment, ensured contract for safety, provided clear and simple instructions, monitored behaviors and maintained clear boundaries, provided active listening and positive encouragement, monitored V/S, medication education/administration/monitoring, and maintained Q 15min safety checks. Restraints/seclusion/emergency medication: N/A Justification of Continued Inpatient Treatment: Patient continues to require a safe and therapeutic environment, medication adjustment/monitoring, and crisis intervention.
[2021-04-01] MEDS: mirtazapine 15mg tablet PO SCH (20:21)
[2021-04-01] MEDS: progesterone, micronized 100mg capsule PO SCH (20:21)
[2021-04-01 20:30] VITALS: BP 127/80
--- NOTE | 2021-04-02 01:06 | NUR ---
Nursing Progress Note Legal hold: 5150 Client on involuntary status for DTS Report received from TRICE Syed with use of SBAR Why are they here: Client BIB EMS after being bitten by her therapy dog. Client reported suicidal ideation due to possible loss of therapy dog. Hx of depression and multiple suicide attempts via overdose. Client has been in [facility]. Client is currently transitioning from male to female. Assessment What has happened this shift: The patient was seen in the community room at shift change. She spent the evening in the back with a couple of her female peers. They laughed a lot and seemed to be enjoying themselves as they colored. The patient carries a stuffed animal with her. After a while she went to her room and napped until snack time. Patient reports that she is still depressed and suicidal, feeling helpless and hopeless about a future without any family support. She denies HI or any AV/H. The patient ate a snack, took HS meds and went to her room. S/I, H/I: Denies HI endorses SI. A/VH: Denies. Sleep: See sleep assessment. ADL's: Independent Group attendance: No group on shift supervisor film processing. Were meds taken: Yes. Any med S/E: None reported or observed Mental Status Exam Appearance: Clean and well groomed. Wearing a Robert skirt. Eye contact: Intermittent. Behavior: Pleasant and cooperative, intrusive, guarded. Speech: Slow and soft. Mood: Depressed. Affect: Blunted. Thought process: Linear. Thought Content: Feeling depressed. Concerned about her dog. Suicidal ideation and possibility of incarceration at a male [facility]dc in [place]. Cognition: A&O x4 Insight: Poor Judgment: Poor Interventions PRN's used: Therapeutic interventions: Maintained a safe and supportive environment, 1:1 assessment, ensured contract for safety, provided clear and simple instructions, monitored behaviors and maintained clear boundaries, provided active listening and positive encouragement, monitored V/S, medication education/administration/monitoring, and maintained Q 15min safety checks. Restraints/seclusion/emergency medication: N/A Justification of Continued Inpatient Treatment: Patient continues to require a safe and therapeutic environment, medication adjustment/monitoring, and crisis intervention.
[2021-04-02 07:10] VITALS: BP 119/64
[2021-04-02] MEDS: venlafaxine XR 75mg capsule (Q24H) PO SCH (08:14)
[2021-04-02] MEDS: methylphenidate 5mg tablet PO SCH ×2 (08:14→13:06)
[2021-04-02] MEDS: gabapentin 300mg capsule PO SCH ×3 (08:14→20:15)
[2021-04-02] MEDS: nicotine 21mg patch - 24 hr TD SCH (08:15)
[2021-04-02] MEDS: dutasteride 0.5 MG capsule PO SCH (08:15)
[2021-04-02] MEDS: EFLORNITHINE HCL TP SCH ×2 (08:16→20:23)
[2021-04-02] MEDS: NICOTINE POLACRILEX 2 MG LOZENGE BC PRN ×2 (11:16→14:24)
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
[2021-04-02] MEDS: clonazePAM 1mg tablet PO PRN (18:12)
[2021-04-02 20:00] VITALS: BP 98/79
[2021-04-02] MEDS: progesterone, micronized 100mg capsule PO SCH (20:14)
[2021-04-02] MEDS: mirtazapine 15mg tablet PO SCH (20:15)
[2021-04-02] MEDS: zolpidem 5mg tablet PO PRN (20:15)
--- NOTE | 2021-04-03 02:52 | NUR ---
Nursing Progress Note Legal hold: 5150 Client on involuntary status for DTS Report received from TRICE Syed with use of SBAR Why are they here: Client BIB EMS after being bitten by her therapy dog. Client reported suicidal ideation due to possible loss of therapy dog. Hx of depression and multiple suicide attempts via overdose. Client has been in [facility]. Client is currently transitioning from male to female. Assessment What has happened this shift: The patient was seen in the community room at shift change. Her and a favorite peer were sitting in the room talking quietly. They eventually moved back to the corner and could be heard talking about how horrible their lives and families are. They stayed through snack time and med pass. She was next seen lying on the floor in her room, while her "friend" sat outside the door. S/I, H/I: Passive SI. A/VH: Denies. Sleep: See sleep assessment. ADL's: Independent Group attendance: No group on overnight associate. Were meds taken: Yes. Any med S/E: None reported or observed Mental Status Exam Appearance: Clean and well groomed. Wearing a Long skirt. Eye contact: Intermittent. Behavior: Pleasant and cooperative, intrusive, guarded. Speech: Slow and soft. Mood: Depressed. Affect: Blunted. Thought process: Linear. Thought Content: Suicidal ideation and possibility of incarceration at a male nursing home in [place]. Cognition: A&O x4 Insight: Poor Judgment: Poor Interventions PRN's used: Therapeutic interventions: Maintained a safe and supportive environment, 1:1 assessment, ensured contract for safety, provided clear and simple instructions, monitored behaviors and maintained clear boundaries, provided active listening and positive encouragement, monitored V/S, medication education/administration/monitoring, and maintained Q 15min safety checks. Restraints/seclusion/emergency medication: N/A Justification of Continued Inpatient Treatment: Patient continues to require a safe and therapeutic environment, medication adjustment/monitoring, and crisis intervention.
[2021-04-03 08:00] VITALS: BP 99/62
[2021-04-03] MEDS: gabapentin 300mg capsule PO SCH ×3 (08:36→20:46)
[2021-04-03] MEDS: venlafaxine XR 75mg capsule (Q24H) PO SCH (08:36)
[2021-04-03] MEDS: dutasteride 0.5 MG capsule PO SCH (08:36)
[2021-04-03] MEDS: nicotine 21mg patch - 24 hr TD SCH (08:36)
[2021-04-03] MEDS: methylphenidate 5mg tablet PO SCH ×2 (08:36→13:36)
[2021-04-03] MEDS: EFLORNITHINE HCL TP SCH ×2 (08:37→20:46)
[2021-04-03] MEDS: NICOTINE POLACRILEX 2 MG LOZENGE BC PRN ×3 (08:46→18:14)
[2021-04-03] MEDS: clonazePAM 1mg tablet PO PRN ×4 (11:22→21:42)
[2021-04-03] MEDS ORDERED: TIAGABINE 4 MG PO ONE (12:40)
--- NOTE | 2021-04-03 14:17 | NUR ---
Initial: Pt admit DX SI PO ~100% avg regular diet per EMR; meeting needs. LBM 04/01. No nutrition intervention at this time. Will continue to monitor. Rec: 1. continue regular diet 2. bowel care per rx 3. weekly wts Addendum: 04/03/21 at [address] Amended: Links added.
--- NOTE | 2021-04-03 16:18 | NUR ---
Nursing Progress Note: [facility] [employer] hold: Voluntary Client on involuntary status for DTS Report received from LYDIA Alejandro with use of SBAR. Why are they here: Client BIB EMS after being bitten by her therapy dog. Client reported suicidal ideation due to possible loss of therapy dog. Hx of depression and multiple suicide attempts via overdose. Client has been in [facility]. Client is currently transitioning from male to female. Assessment What has happened this shift: Received patient sleeping at shift change, respirations even and unlabored. Pt was awoken for breakfast, continues to be compliant with care and medications. In pts room securities underwriter found two of her used nicotine patches on her bed. Pts patch from yesterday (04/02) was removed. Pt states I vape 600mg of nicotine. Rolls Mill Operator educated pt on the importance of removing patches and not keeping multiple patches on. Pt states I will hid it in a different area. Intervention was placed for HS to remove patch. Pt requested PRN for anxiety as another pt was screaming and causing commotion on the unit. Pt required MR x1 dose. PRN was effective, observed pt sleeping comfortably in her room after lunch. Pt declined to attend morning group. Dr. Forrest added Gabatril (tiagabine) 4mg BID to pts medicine regimen. S/I, H/I: Suicidal thoughts in and out. Denies H/I. A/VH: Pt denies. Does not appear internally preoccupied. Sleep: 7.5 hours per sleep assessment. Afternoon nap. ADL's: Independent. Group attendance: Declined. Were meds taken: Yes, without issue. Any med S/E: None reported or observed Mental Status Exam Appearance: Pt showered. Dressed in black pants and shirt. Appropriate make up applied. Eye contact: Good Behavior: Cooperative, friendly, social with peers. Intrusive. Speech: Clear, hyper verbal at times. Intermittent voice inflection. Mood: Feeling depressed. Affect: Animated Thought process: Linear Thought Content: Meeting needs Cognition: A&O x3 Insight: Poor Judgment: Poor Interventions PRN's used: Klonopin x 2, nicotine lozenge. Therapeutic interventions: Maintained a safe and supportive environment, 1:1 assessment, ensured contract for safety, provided clear and simple instructions, monitored behaviors and maintained clear boundaries, provided active listening and positive encouragement, monitored V/S, medication education/administration/monitoring, and maintained Q 15min safety checks. Restraints/seclusion/emergency medication: N/A Justification of Continued Inpatient Treatment: Patient continues to require a safe and therapeutic environment, medication adjustment/monitoring, and crisis intervention.
[2021-04-03 20:00] VITALS: BP 118/80
[2021-04-03] MEDS: progesterone, micronized 100mg capsule PO SCH (20:45)
[2021-04-03] MEDS: TIAGABINE 4 MG PO SCH (20:45)
[2021-04-03] MEDS: mirtazapine 15mg tablet PO SCH (20:45)
--- NOTE | 2021-04-03 21:29 | NUR ---
Pt does not want to take off nicotine patch. Pt states "I sleep with my vape pen! I dont have nightmares, I have fun dreams sometimes, but I need to sleep with my nicotine patch on."
--- NOTE | 2021-04-04 03:00 | NUR ---
Nursing Progress Note: [facility] [employer] hold: Voluntary Client on involuntary status for DTS Report received from LYDIA Syed with use of SBAR. Why are they here: Client BIB EMS after being bitten by her therapy dog. Client reported suicidal ideation due to possible loss of therapy dog. Hx of depression and multiple suicide attempts via overdose. Client has been in [facility]. Client is currently transitioning from male to female. Assessment What has happened this shift: Pt was in the hallway talking with another patient at change of shift. Pt states she is suicidal if she doesnt get a good discharge plan. Pt states "I dont feel safe, so if these places keep discharging me, in a week I will be ." Pt states "Im a 15 year old girl trapped in a 30 year old lori body. I have autism and have elevated skills so people think I have higher capacity than I do, for the most part Im a scared little girl." Pt c/o anxiety requests repeat dose of clonopin before requesting prn ambien for sleep. Pt declined to remove nicotine patch at HS. S/I, H/I: passive S/I not voicing a plan Denies H/I. A/VH: Pt denies. Does not appear internally preoccupied. Sleep: see sleep hours ADL's: Independent. Group attendance: no evening groups socializes with peers Were meds taken: Yes, without issue. Any med S/E: None reported or observed Mental Status Exam Appearance: Pt showered. Dressed in black pants and shirt. Appropriate make up applied. Eye contact: Good Behavior: Cooperative, friendly, social with peers. Intrusive. Speech: Clear, hyper verbal at times. Mood: depressed Affect: Animated Thought process: Linear Thought Content: Meeting needs Cognition: A&O x3 Insight: Poor Judgment: Poor Interventions PRN's used: Klonopin x 2, nicotine lozenge. ambien Therapeutic interventions: Maintained a safe and supportive environment, 1:1 assessment, ensured contract for safety, provided clear and simple instructions, monitored behaviors and maintained clear boundaries, provided active listening and positive encouragement, monitored V/S, medication education/administration/monitoring, and maintained Q 15min safety checks. Restraints/seclusion/emergency medication: N/A Justification of Continued Inpatient Treatment: Patient continues to require a safe and therapeutic environment, medication adjustment/monitoring, and crisis intervention.
[2021-04-04 07:00] VITALS: BP 119/69
[2021-04-04] MEDS: TIAGABINE 4 MG PO SCH ×2 (08:09→21:25)
[2021-04-04] MEDS: dutasteride 0.5 MG capsule PO SCH (08:09)
[2021-04-04] MEDS: venlafaxine XR 75mg capsule (Q24H) PO SCH (08:10)
[2021-04-04] MEDS: methylphenidate 5mg tablet PO SCH ×2 (08:10→13:06)
[2021-04-04] MEDS: gabapentin 300mg capsule PO SCH ×3 (08:10→21:24)
[2021-04-04] MEDS: nicotine 21mg patch - 24 hr TD SCH (08:11)
[2021-04-04] MEDS: EFLORNITHINE HCL TP SCH ×2 (08:11→20:00)
[2021-04-04] MEDS: clonazePAM 1mg tablet PO PRN ×2 (11:39→13:11)
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
[2021-04-04] MEDS ORDERED: OLANZapine **IM** 10 mg inj. IM ONE (15:33)
--- NOTE | 2021-04-04 17:09 | NUR ---
1:1 Presenting Issues: Pt's been reporting that she's afraid to d/c because she continues to be suicidal. Interventions: Clinician met w/pt and engaged her in CBT, DBT to process her thoughts, fears and emotions associated w/d/c. At the start of session, she states, "I function as a 15 y/o girl, I can't be alone, I need to be in a skilled nursing". Clinician engaged pt in a brief functional capacity assessment to better understand her needs for dcp purposes. Pt reports that she can't manage her finances, clinician educated pt on payeeship services pt quickly declined a referral for a payee, stating, "my dad is doing that for me but he doesn't accept my trans identity". Clinician also utilized [place] strategies to provide support and encouragement for pt to move from not wanting to discharge to setting goals for d/c. Per session, pt returned to [place] from [place], to reunite w/her daughter. However, dtr's mother took her and moved out of the area, pt's been staying with her friend in [place] and became suicidal so friend brought her to the ER. Pt states, "I came her hoping that the psychiatrist can provide a letter recommending a gender change surgery so I can go to [facility] for the surgery." Clinician provided education re the medical necessity criteria for such a procedure needs to be establish with a provider who provides such treatment in an outpatient setting first, clinician offered to provide a referral to the local transgender Health clinic upon d/c, pt agreed to this and also agreed to connecting w/[facility] to continue her mental health care. Plan: Pt is accepting that she will need to d/c sometime soon and wants to maintain her stability upon d/c. Clinician will continue to provide support & engage pt in dcp activities as she can tolerate. Isabelle Doran LCSW Addendum: 04/04/21 at 1748 by Isabelle [place] Amended: Links added.
--- NOTE | 2021-04-04 17:25 | NUR ---
Nursing Progress Note: Legal hold: Voluntary Client on voluntary status for DTS Report received from LYDIA Aleajndro with use of SBAR. Why are they here: Client BIB EMS after being bitten by her therapy dog. Client reported suicidal ideation due to possible loss of therapy dog. Hx of depression and multiple suicide attempts via overdose. Client has been in [facility]. Client is currently transitioning from male to female. Assessment What has happened this shift: Patient resting quietly in bed at the start of the shift. Eats breakfast in community room and interacts appropriately with peers and staff. Cooperative with 1:1 assessment and medications. Continues to state she is suicidal if she doesnt get a good discharge plan. Argumentative and intrusive. Demanding to see a [place] fire map due to anxiety caused by all of the smoke outside. Patient is argumentative when assured that it is fog she is seeing outside and that there are no local fires that are threatening the area. Patient then changes her reasoning stating she wants to see the whole fire map for [place], as it interests her and gives her something to put her mind on besides her depression. Patient encouraged to attend group as something to put her mind on and to address issues leading to admission here. She states, I am autistic so I already know everything and Jesi studied all there is to know about my depression. Jsei been in so many hospitals already and the group they do here is an introductory course. Later approaches nursing station and states, If you give me gini Ill try to make myself go to group. I really just want to go back to my room and curl into a ball. Patient takes RAHEEMN gini then stands in doorway rubbing hands together and rocking from side to side talking about having a natural high tolerance for all medications and wishes that she could have higher doses. Also states Im autistic so I have special skills, but inside Im a 15 year old girl. 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 Insists that she is in need of someone to manage her finances and organize her life. States her dad helps her with finances at this time, but that he is transphobic so she does not want him helping anymore. Referred to sand control worker Isabelle who encourages patient to attend group but patient states she has difficulty around a lot of people especially if there are men involved. sand control worker suggests going to a later group where they will be doing art. Patient states, That sounds stupid but well see. Returns requesting second available dose of klonopin stating the first did not have the desired effect. At snack time patient is demanding hot chicken broth due to nausea. As there is no hot water left, patient is asked to wait until water warms up and snacks are passed to the other patients. Patient throws sandwich and juice on the ground and walks away. Patient returns and demands Zyprexa from this nurse during an interaction with another patient, Get me Zyprexa. Patient is asked to wait until the other patient interaction is complete to which patient exclaims, Get me Zyprexa NOW! Patient then begins hitting her head on the wall which makes a large dent. Attempted to redirect and escort patient to her room for a quieter environment and security is called. Patient then hit her head on the wall again and was restrained by CRN. While waiting for security assist patient began crying, Im actually really enjoying you holding me right now cause I am so starved for human touch! Escorted to observation room by unit staff and security and restraints placed. Patient then pulled free from restraints and began fighting against security. Code Doan called and locking restrains are placed. Provider gives order for IM Zyprexa which is administered. sand control worker sits to talk with patient and offers comfort. Patient repeats that she doesnt want to be left alone and that she is starved for human touch. Also states, I want you to know that when I ask for Zyprexa its an emergency and if you dont get it for me immediately this is whats going to happen. Patient monitored and provided weighted blanket for comfort. Once patient contracts for safety she is escorted back to her room where she rests quietly in her bed. S/I, H/I: Endorses suicidal ideation if released without a good discharge plan. A/VH: Denies Sleep: 6.25 hours per NOC. Sleeps until breakfast. ADL's: Independent. Group attendance: No Were meds taken: Yes Any med S/E: None reported or observed Mental Status Exam Appearance: Young/ middle aged female with facial stubble, short colorful hair wearing personal clothing appropriate to unit. Eye contact: Good Behavior: Intrusive, demanding, social with select peers. Speech: Clear, normal rate/ rhythm, hyper verbal at times. Mood: Depressed Affect: Animated Thought process: Circumstantial Thought Content: Expresses repeated concern of inability to care for self. Demanding attention. Cognition: A&O x4 Insight: Poor Judgment: Poor Interventions PRN's used: Gini Therapeutic interventions: Maintained a safe and supportive environment, 1:1 assessment, ensured contract for safety, provided clear and simple instructions, monitored behaviors and maintained clear boundaries, provided active listening and positive encouragement, monitored V/S, medication education/administration/monitoring, and maintained Q 15min safety checks. Restraints/seclusion/emergency medication: IM Zyprexa Justification of Continued Inpatient Treatment: Patient continues to require a safe and therapeutic environment, medication adjustment/monitoring, and crisis intervention.
--- NOTE | 2021-04-04 17:48 | NUR ---
Crisis Intervention Presenting Issues: Pt did not get what she wanted, became emotionally agitated, banged her head against lanza, became combative requiring physical restraint. Interventions: Clinician met pt while she was in restraint, provided EMDR Resourcing-Calm Breaths to support emotional grounding. Clinician also provided support for pt to narrate the traumatic experience of being taken down and placed in restraints. Pt reports that she doesn't want to be alone, and that she had wanted to be taken down because she was craving physical touching. Pt asked if she could be held, clinician explained to pt that was not going to happen but that clinician would hold her hand and help her to regulate her breathing. Clinician requested for the use of a weighted blanket as pt had described feeling comforted when her service dog lie on her chest, pt's RN brought her a weighted blanket this appears to calm pt. Plan: Clinician will check in w/pt tomorrow. Isabelle oDran LCSW Addendum: 04/04/21 at 1757 by Isabelle Doran SS Amended: Links added.
[2021-04-04] MEDS: progesterone, micronized 100mg capsule PO SCH (21:24)
[2021-04-04] MEDS: mirtazapine 15mg tablet PO SCH (21:25)
--- NOTE | 2021-04-04 23:56 | NUR ---
Nursing Progress Note: Legal hold: 5250 Client on involuntary status for DTS Report received from LYDIA Syed with use of SBAR. Why are they here: Client BIB EMS after being bitten by her therapy dog. Client reported suicidal ideation due to possible loss of therapy dog. Hx of depression and multiple suicide attempts via overdose. Client has been in [facility]. Client is currently transitioning from male to female. Assessment What has happened this shift: Patient resting quietly in bed at the start of the shift with weighted blanket in use and holding a stuffed animal sucking on a pacifier. Sleeps through dinner and snack but awakens just after 21:00. Interacting appropriately with staff and peers. Cooperative with medication and 1:1 assessment. S/I, H/I: Endorses suicidal ideation if released without a good discharge plan. A/VH: Denies Sleep: See sleep assessment ADL's: Independent. Group attendance: N/A Were meds taken: Yes Any med S/E: Fatigued Mental Status Exam Appearance: Young/ middle aged female with facial stubble, short colorful hair wearing personal clothing appropriate to unit. Eye contact: Good Behavior: Cooperative Speech: Clear, normal rate/ rhythm Mood: Depressed Affect: Blunted Thought process: Circumstantial Thought Content: Meeting needs Cognition: A&O x4 Insight: Poor Judgment: Poor Interventions PRN's used: None Therapeutic interventions: Maintained a safe and supportive environment, 1:1 assessment, ensured contract for safety, provided clear and simple instructions, monitored behaviors and maintained clear boundaries, provided active listening and positive encouragement, monitored V/S, medication education/administration/monitoring, and maintained Q 15min safety checks. Restraints/seclusion/emergency medication: None Justification of Continued Inpatient Treatment: Patient continues to require a safe and therapeutic environment, medication adjustment/monitoring, and crisis intervention.
--- NOTE | 2021-04-04 23:58 | NUR ---
Refuses to remove Nicotine patch at HS. States, "It messes me all up." CRN notified.
[2021-04-05 08:00] VITALS: BP 114/74
[2021-04-05] MEDS: ESTRADIOL VALERATE 200 MG/5 ML IM SCH ×2 (08:00→21:00)
[2021-04-05] MEDS: gabapentin 300mg capsule PO SCH ×3 (08:48→20:48)
[2021-04-05] MEDS: TIAGABINE 4 MG PO SCH ×2 (08:48→20:48)
[2021-04-05] MEDS: methylphenidate 5mg tablet PO SCH ×2 (08:48→13:11)
[2021-04-05] MEDS: venlafaxine XR 75mg capsule (Q24H) PO SCH (08:49)
[2021-04-05] MEDS: nicotine 21mg patch - 24 hr TD SCH (08:51)
[2021-04-05] MEDS: dutasteride 0.5 MG capsule PO SCH (09:47)
[2021-04-05] MEDS: EFLORNITHINE HCL TP SCH ×2 (11:01→21:03)
[2021-04-05] MEDS: clonazePAM 1mg tablet PO PRN (11:23)
[2021-04-05] MEDS: NICOTINE POLACRILEX 2 MG LOZENGE BC PRN ×3 (11:41→17:02)
--- NOTE | 2021-04-05 17:25 | NUR ---
Nursing Progress Note: Charisma Anthony Legal hold: 5250 Client on involuntary status for DTS Report received from TRICE Alejandro with use of SBAR. Why are they here: Client BIB EMS after being bitten by her therapy dog. Client reported suicidal ideation due to possible loss of therapy dog. Hx of depression and multiple suicide attempts via overdose. Client has been in [facility]. Client is currently transitioning from male to female. Assessment What has happened this shift: Received patient sleeping in her room. She awoke to receive her medication and 1:1 assessment completed. Pt. reports S/I with a plan, but will not elaborate or disclose any information. Pt. proceeded to breakfast with cohorts and self-isolated the rest of the morning. Pt. approached production underwriter reporting I cant go to group because I need medication, im going through so much right now PRN for anxiety Klonopin given. Pt returned a few minutes later wrapped in a blanket with her stuffed animal and a pacifier in her mouth, she sat near production underwriter for 20min. Pt. later ate lunch in the dining room and was observed laughing with peers at the table. Pt. approached production underwriter requesting a second dose of Klonopin; too early for medication offered Olazapine, and she refused. Later pt. requested nicotine lozenge primary changed order to Qhr. S/I, H/I: +SI, denies HI A/VH: Denies, Does not appear internally preoccupied. Sleep: 9.2 hours per sleep assessment, with naps this shift. ADL's: Independent. Group attendance: No Were meds taken: Yes Any med S/E: None reported or observed Mental Status Exam Appearance: Disheveled, wearing street clothes. Colorful make up. Eye contact: Good Behavior: Social with peers, cooperative, dramatic today. Intrusive. Speech: Clear. Mood: Feeling depressed. Affect: Animated Thought process: Linear Thought Content: Meeting needs Cognition: A&O x4 Insight: Poor Judgment: Poor Interventions PRN's used: Klonopin, nicotine lozenge Therapeutic interventions: Maintained a safe and supportive environment, 1:1 assessment, ensured contract for safety, provided clear and simple instructions, monitored behaviors and maintained clear boundaries, provided active listening and positive encouragement, monitored V/S, medication education/administration/monitoring, and maintained Q 15min safety checks. Restraints/seclusion/emergency medication: N/A Justification of Continued Inpatient Treatment: Patient continues to require a safe and therapeutic environment, medication adjustment/monitoring, and crisis intervention.
[2021-04-05 19:00] VITALS: BP 104/63
[2021-04-05] MEDS: progesterone, micronized 100mg capsule PO SCH (20:48)
[2021-04-05] MEDS: mirtazapine 15mg tablet PO SCH (20:48)
--- NOTE | 2021-04-05 23:11 | NUR ---
Nursing Progress Note: Legal hold: 5250 Client on involuntary status for DTS Report received from LYDIA Syed with use of SBAR. Why are they here: Client BIB EMS after being bitten by her therapy dog. Client reported suicidal ideation due to possible loss of therapy dog. Hx of depression and multiple suicide attempts via overdose. Client has been in [facility]. Client is currently transitioning from male to female. Assessment What has happened this shift: Patient observed sleeping at the beginning of shift; she was provided dinner after waking. Patient is mostly pleasant and cooperative, becomes irritable if she believes needs are not being quick enough. Patient denies SI, HI, A/VH this shift; states, "I'm surprisingly feeling really good right now." Compliant with all medication. She received Estradiol injection post lab draw. Refused to remove Nicotine patch and claims to not have nightmares while wearing it during sleep. Patient shaved arms and face this shift. She participated in HS snack prior to bed; observed sleeping and does not appear to be having difficulty. S/I, H/I: Denies A/VH: Denies Sleep: Refer to sleep assessment ADL's: Independent. Group attendance: NA Were meds taken: Yes Any med S/E: None observed or reported Mental Status Exam Appearance: Well groomed, wearing mismatched personal clothing Eye contact: Good Behavior: Cooperative, social Speech: Clear, normal rate/ rhythm Mood: Labile Affect: Blunted Thought process: Circumstantial Thought Content: Meeting needs, sex change, family Cognition: A&O x4 Insight: Poor Judgment: Poor Interventions PRN's used: None Therapeutic interventions: Maintained a safe and supportive environment, 1:1 assessment, ensured contract for safety, provided clear and simple instructions, monitored behaviors and maintained clear boundaries, provided active listening and positive encouragement, monitored V/S, medication education/administration/monitoring, and maintained Q 15min safety checks. Restraints/seclusion/emergency medication: None Justification of Continued Inpatient Treatment: Patient continues to require a safe and therapeutic environment, medication adjustment/monitoring, and crisis intervention.
[2021-04-06] MEDS: ESTRADIOL VALERATE 200 MG/5 ML IM SCH (04:25)
[2021-04-06 08:00] VITALS: BP 113/63
[2021-04-06] MEDS: venlafaxine XR 75mg capsule (Q24H) PO SCH (08:39)
[2021-04-06] MEDS: EFLORNITHINE HCL TP SCH ×2 (08:40→20:00)
[2021-04-06] MEDS: TIAGABINE 4 MG PO SCH ×2 (08:40→20:00)
[2021-04-06] MEDS: dutasteride 0.5 MG capsule PO SCH (08:40)
[2021-04-06] MEDS: methylphenidate 5mg tablet PO SCH ×2 (08:40→13:24)
[2021-04-06] MEDS: gabapentin 300mg capsule PO SCH ×3 (08:40→21:00)
[2021-04-06] MEDS: nicotine 21mg patch - 24 hr TD SCH (08:53)
[2021-04-06] MEDS: clonazePAM 1mg tablet PO PRN ×2 (09:16→17:18)
[2021-04-06] MEDS: NICOTINE POLACRILEX 2 MG LOZENGE BC PRN (09:18)
--- NOTE | 2021-04-06 17:18 | NUR ---
Nursing Progress Note: Legal hold: 5250 Client on involuntary status for DTS Report received from LYDIA Ch with use of SBAR. Why are they here: Client BIB EMS after being bitten by her therapy dog. Client reported suicidal ideation due to possible loss of therapy dog. Hx of depression and multiple suicide attempts via overdose. Client has been in [facility]. Client is currently transitioning from male to female. Assessment What has happened this shift: Patient resting quietly in bed at the start of the shift. Eats meals in community room and interacts appropriately with staff and peers. Socializes with staff and peers and is friendly/ hyperverbal. After lunch patient takes a nap. PRN Klonopin given for anxiety which appears helpful. Patient states, I am just so starved for human touch, can I just get a hug? Upper back rub given for comfort as well as chicken broth as patient states the warm broth, Is like a hug from the inside. Patient continues to be hyperverbal throughout the day. S/I, H/I: Denies A/VH: Denies Sleep: see sleep assessment ADL's: Independent. Group attendance: No Were meds taken: Yes Any med S/E: None observed or reported Mental Status Exam Appearance: Middle aged person with facial stubble wearing womens clothing, disheveled colorful hair. Eye contact: Good Behavior: Social, hyper verbal, cooperative, attention seeking. Speech: Clear, normal rate/ rhythm, hyper verbal Mood: Im okay I guess. Affect: Animated Thought process: Tangential Thought Content: Gender identity, legal issues, flight of ideas. Cognition: A&O x4 Insight: Poor Judgment: Poor Interventions PRN's used: None Therapeutic interventions: Maintained a safe and supportive environment, 1:1 assessment, ensured contract for safety, provided clear and simple instructions, monitored behaviors and maintained clear boundaries, provided active listening and positive encouragement, monitored V/S, medication education/administration/monitoring, and maintained Q 15min safety checks. Restraints/seclusion/emergency medication: None Justification of Continued Inpatient Treatment: Patient continues to require a safe and therapeutic environment, medication adjustment/monitoring, and crisis intervention.
[2021-04-06] MEDS ORDERED: LORazepam 2 mg/ml vial IM ONE (19:45)
[2021-04-06] MEDS ORDERED: OLANZapine **IM** 10 mg inj. IM ONE (19:45)
[2021-04-06] MEDS ORDERED: LORazepam 2 mg/ml vial ONE (19:49)
[2021-04-06] MEDS ORDERED: haloperidol lactate 5mg/ml inj ONE (19:49)
[2021-04-06 19:58] VITALS: BP 109/65
[2021-04-06] MEDS: mirtazapine 15mg tablet PO SCH (21:00)
[2021-04-06] MEDS: progesterone, micronized 100mg capsule PO SCH (21:00)
[2021-04-06] MEDS ORDERED: haloperidol lactate 5mg/ml inj IM ONE (23:15)
--- NOTE | 2021-04-06 23:54 | NUR ---
Nursing Progress Note: Legal hold: 5250 Client on involuntary status for DTS Report received from LYDIA Syed with use of SBAR. Why are they here: Client BIB EMS after being bitten by her therapy dog. Client reported suicidal ideation due to possible loss of therapy dog. Hx of depression and multiple suicide attempts via overdose. Client has been in [facility]. Client is currently transitioning from male to female. Assessment What has happened this shift: Patient observed talking with the doctor at the beginning of shift. Shortly after ending the conversation with the doctor patient came out c/o "not getting the attention needed" to a female peer. Patient continued to report "being deprived of human touch" and requesting that peer gave her a hug. After peer denied, patient then laid onto the floor. Bmx Rider asked several times that the patient sit up or if she needed to lay down that she do so in her bed. Patient responded, "my body says no." Bmx Rider began walked away she began listing off demands. Peer reported patient was threatening to kill herself if she was discharged to the mission. Patient began hitting her head on the floor and Wil GONSALES, notified and orders for Haldol 10mg IM and Ativan 2mg IM ordered. Patient walked to her room with security and staff standing by; received injections without difficulty. Patient has remained in bed; observed sleeping and does not appear to be having difficulty. S/I, H/I: Passive SI A/VH: Denies Sleep: Refer to sleep assessment ADL's: Independent. Group attendance: NA Were meds taken: Yes Any med S/E: None observed or reported Mental Status Exam Appearance: Well groomed, wearing personal clothing Eye contact: Good Behavior: Impulsive, agitated, attention seeking Speech: Clear, normal rate/ rhythm Mood: Labile Affect: Congruent to mood Thought process: Thought Content: Meeting needs Cognition: A&O x4 Insight: Poor Judgment: Poor Interventions PRN's used: None Therapeutic interventions: Maintained a safe and supportive environment, 1:1 assessment, ensured contract for safety, provided clear and simple instructions, monitored behaviors and maintained clear boundaries, provided active listening and positive encouragement, monitored V/S, medication education/administration/monitoring, and maintained Q 15min safety checks. Restraints/seclusion/emergency medication: Haldol 10mg IM and Ativan 2mg IM Justification of Continued Inpatient Treatment: Patient continues to require a safe and therapeutic environment, medication adjustment/monitoring, and crisis intervention.
[2021-04-07 08:00] VITALS: BP 120/70
[2021-04-07 08:18] LABS: SEX HORM BINDING GLOB, SERUM 81.8 nmol/L (24.6-122.0)
[2021-04-07] MEDS: dutasteride 0.5 MG capsule PO SCH (08:43)
[2021-04-07] MEDS: gabapentin 300mg capsule PO SCH ×3 (08:43→20:18)
[2021-04-07] MEDS: venlafaxine XR 75mg capsule (Q24H) PO SCH (08:43)
[2021-04-07] MEDS: TIAGABINE 4 MG PO SCH ×2 (08:43→20:18)
[2021-04-07] MEDS: methylphenidate 5mg tablet PO SCH ×2 (08:43→13:16)
[2021-04-07] MEDS: EFLORNITHINE HCL TP SCH ×2 (08:44→20:00)
[2021-04-07] MEDS: nicotine 21mg patch - 24 hr TD SCH (08:45)
[2021-04-07 15:05] LABS: PROGESTERONE 1.3 ng/mL (.)
--- NOTE | 2021-04-07 16:33 | NUR ---
Nursing Progress Note: Legal hold: 5250 Client on involuntary status for DTS Report received from nurse with use of SBAR: TRICE Syed Why are they here: Client BIB EMS after being bitten by her therapy dog. Client reported suicidal ideation due to possible loss of therapy dog. Hx of depression and multiple suicide attempts via overdose. Client has been in [facility]. Client is currently transitioning from male to female. Assessment What has happened this shift: Received pt. sleeping in bed at the beginning of the shift, clutching a stuffed animal, she remained here throughout the shift getting up only for meals. 1:1 completed at bedside, pt. reports she slept well and states in a joking way, "I'm still doing it." She is compliant with all medications, however did again try to obtain more than one nicotine patch (reporting her old patch had been removed, but was found to be in place by this health technical writer). Pt. denies any S/I, however reports she is, "Really depressed." When questioned further regarding the cause for her depression, pt. states in a guarded manner, "Just life." This health technical writer attempted to provide further active listening and therapeutic communication, however pt. stated, "I don't feel like talking. I just want to lay here." She [id number] here throughout the day. S/I, H/I: Denies, states, "I don't have the energy." A/VH: Denies, does not appear to be responding to internal stimuli Sleep: Sleep hours are 7.5, however pt. remains in bed throughout the shift, getting up only to attend meals. ADL's: Requires some encouragement Group attendance: N/A Were meds taken: Yes Any med S/E: None Mental Status Exam Appearance: Hair and clothing disheveled r/t laying in bed Eye contact: Moderate Behavior: Cooperative, fatigued, guarded, and isolative Speech: Soft, WNL Mood: Guarded and depressed Affect: Constricted Thought process: Poverty of thought with possible thought blocking Thought Content: Perseveration on depressed mood Cognition: A&O X3 (not to month) Insight: Poor Judgment: Poor Interventions PRN's used: None Therapeutic interventions: Introduced self and established rapport, maintained a safe and supportive environment, ensured contract for safety, provided clear and simple instructions, provided active listening and positive encouragement, maintained clear boundaries, and maintained Q 15mi min safety checks. Restraints/seclusion/emergency medication: N/A Justification of Continued Inpatient Treatment: Per DRU Melara, pt. continues to require as safe and supportive environment and clear boundaries. Will encourage her to contact friends to set up resources.
[2021-04-07 20:01] VITALS: BP 116/65
[2021-04-07] MEDS: progesterone, micronized 100mg capsule PO SCH (20:19)
[2021-04-07] MEDS: mirtazapine 15mg tablet PO SCH (20:19)
--- NOTE | 2021-04-07 23:51 | NUR ---
Nursing Progress Note: Legal hold: 5250 Client on involuntary status for DTS Report received from LYDIA Mckeon with use of SBAR. Why are they here: Client BIB EMS after being bitten by her therapy dog. Client reported suicidal ideation due to possible loss of therapy dog. Hx of depression and multiple suicide attempts via overdose. Client has been in [facility]. Client is currently transitioning from male to female. Assessment What has happened this shift: Patient observed sleeping in bed at the beginning of shift. Pleasant and cooperative with care; compliant with medication. Nicotine patch remains on patient. She refused Eflornithine cream this shift. No reports of SI, HI, A/VH this shift. Patient has remained in bed; observed sleeping and does not appear to be having difficulty. S/I, H/I: None reported A/VH: None reported Sleep: Refer to sleep assessment ADL's: Independent. Group attendance: NA Were meds taken: Yes Any med S/E: None observed or reported Mental Status Exam Appearance: Well groomed, wearing personal clothing Eye contact: Good Behavior: Pleasant and cooperative, sleeping Speech: Clear, normal rate/ rhythm Mood: Fatigued Affect: Congruent to mood Thought process: Linear Thought Content: Meeting needs Cognition: A&O x4 Insight: Poor Judgment: Poor Interventions PRN's used: None Therapeutic interventions: Maintained a safe and supportive environment, 1:1 assessment, ensured contract for safety, provided clear and simple instructions, monitored behaviors and maintained clear boundaries, provided active listening and positive encouragement, monitored V/S, medication education/administration/monitoring, and maintained Q 15min safety checks. Restraints/seclusion/emergency medication: Haldol 10mg IM and Ativan 2mg IM Justification of Continued Inpatient Treatment: Patient continues to require a safe and therapeutic environment, medication adjustment/monitoring, and crisis intervention.
[2021-04-08] MEDS: EFLORNITHINE HCL TP SCH ×2 (08:00→20:34)
[2021-04-08 08:21] VITALS: BP 120/64
[2021-04-08] MEDS: venlafaxine XR 75mg capsule (Q24H) PO SCH (09:01)
[2021-04-08] MEDS: gabapentin 300mg capsule PO SCH ×3 (09:01→20:34)
[2021-04-08] MEDS: TIAGABINE 4 MG PO SCH ×2 (09:02→20:34)
[2021-04-08] MEDS: methylphenidate 5mg tablet PO SCH ×2 (09:02→15:11)
[2021-04-08] MEDS: nicotine 21mg patch - 24 hr TD SCH (09:02)
[2021-04-08] MEDS: dutasteride 0.5 MG capsule PO SCH (09:03)
[2021-04-08] MEDS: clonazePAM 1mg tablet PO PRN ×2 (10:38→16:53)
[2021-04-08] MEDS: NICOTINE POLACRILEX 2 MG LOZENGE BC PRN ×3 (10:42→16:57)
--- NOTE | 2021-04-08 14:41 | NUR ---
Nursing Progress Note: Legal hold: 5250 Client on involuntary status for DTS Report received from nurse with use of SBAR: TRICE Syed Why are they here: Client BIB EMS after being bitten by her therapy dog. Client reported suicidal ideation due to possible loss of therapy dog. Hx of depression and multiple suicide attempts via overdose. Client has been in [facility]. Client is currently transitioning from male to female. Assessment What has happened this shift: Received pt. sleeping in bed at the beginning of the shift, clutching a stuffed animal, and sucking a pacifier. 1:1 completed at bedside, pt. reports she slept well, She is compliant with all medications. patient came to nurses charting area about 11am stating "I might need a prn here soon", this singer songwriter asked patient what was giving her anxiety, patient went on to say "it is a physical feeling not in my mind, oh never mind I will take a nicotine annabella, quickly after that patient did ask for Klonopin 2mg, Charisma chewed her Klonopin" "It gives me a sublingo feeling of calm, I like to chew my meds". Patient then laid on the floor in front of the nurses station and refused to move, "you will have to move me if you want me to move, i just want someone to hold me like a mother". Patient went on and on about her Children and her year transition male to female, "now my is a lesbian without even trying, carnes I think that is keagan funny we are still ". S/I, H/I: Denies, although states "if I have to live alone I don't think I can do it" A/VH: Denies, does not appear to be responding to internal stimuli Sleep: pt. remains in bed throughout the shift, getting up only to attend meals. ADL's: Requires some encouragement Group attendance: N/A Were meds taken: Yes Any med S/E: None Mental Status Exam Appearance: Hair and clothing disheveled r/t laying in bed Eye contact: Moderate Behavior: Cooperative, fatigued, guarded, and isolative Speech: Soft, WNL Mood: Guarded and depressed Affect: Constricted Thought process: Poverty of thought with possible thought blocking Thought Content: Perseveration on depressed mood Cognition: A&O X3 (not to month) Insight: Poor Judgment: Poor Interventions PRN's used: None Therapeutic interventions: Introduced self and established rapport, maintained a safe and supportive environment, ensured contract for safety, provided clear and simple instructions, provided active listening and positive encouragement, maintained clear boundaries, and maintained Q 15mi min safety checks. Restraints/seclusion/emergency medication: N/A Justification of Continued Inpatient Treatment: Patient continues to endorse S/I if discharged to live alone. 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 Patient is liable and unable to make a safe discharge plan, if discharged today patient would be at risk for re-admission. Addendum: 04/08/21 at 1655 by Nicole Carty RN [id number] Klonopin 2mg prn for "anxiety" so she says
[2021-04-08 19:37] VITALS: BP 111/75
[2021-04-08] MEDS: mirtazapine 15mg tablet PO SCH (20:34)
[2021-04-08] MEDS: zolpidem 5mg tablet PO PRN (20:34)
[2021-04-08] MEDS: progesterone, micronized 100mg capsule PO SCH (20:36)
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
[2021-04-09 07:00] VITALS: BP 108/62
[2021-04-09] MEDS: EFLORNITHINE HCL TP SCH (08:00)
[2021-04-09] MEDS: dutasteride 0.5 MG capsule PO SCH (08:47)
[2021-04-09] MEDS: TIAGABINE 4 MG PO SCH (08:47)
[2021-04-09] MEDS: gabapentin 300mg capsule PO SCH ×2 (08:47→12:58)
[2021-04-09] MEDS: nicotine 21mg patch - 24 hr TD SCH (08:47)
[2021-04-09] MEDS: methylphenidate 5mg tablet PO SCH ×2 (08:48→12:58)
[2021-04-09] MEDS: venlafaxine XR 75mg capsule (Q24H) PO SCH (08:48)
[2021-04-09] MEDS: clonazePAM 1mg tablet PO PRN (09:03)
[2021-04-09] MEDS: NICOTINE POLACRILEX 2 MG LOZENGE BC PRN ×2 (11:29→13:32)
[2021-04-09] MEDS ORDERED: MIRT-88 PO (13:17)
[2021-04-09] MEDS ORDERED: TIAG4TAB34 PO (13:17)
[2021-04-09] MEDS ORDERED: VENL75CA61 PO (13:17)
[2021-04-09] MEDS ORDERED: gabapentin capsule PO (13:17)
--- NOTE | 2021-04-09 13:35 | NUR ---
Discharge Note: Patient is discharge to Access today to review services at [facility], then staying with a friend. Patient agrees with the discharge plan, denies S/I and H/I, rather is very happy to be leaving so she can Vap to the amount of nicotine she is used to smoking each day. Follow-Up: Patient has been scheduled/referred to the following providers for post-hospital discharge and aftercare treatment. Psychiatrist: Upon discharge, you can complete an intake with [facility] and schedule your post-hospital medication appointment. [address] [id number] Transgender Health: You will need to complete a new patient intake/registration at [facility], meet with a primary care provider there to access an appointment at the [facility]. Primary Care Provider: A new Patient intake/registration packet for [facility] is included with your discharge packet, you will need to complete this packet and walk in at [facility] to access a primary care appointment [facility] [address] [place] [address] HOURS OF OPERATION: Friday - 8 am to 8 pm Friday 8 am to 5 pm Saturdays 9 am to 1 pm - Closed from 8 am to 9:30 am on the first Friday of every month Discharge Address: Home/[facility] Home: [address] [address] [address]NRM: [address] [address] Transportation: [facility]/[place] Patient given community crisis services information and National suicide hotline handout. Please call [phone] for your second outpatient smoking cessation appointment. Resources for education regarding mental illness: [facility] [address] [place], [place] [id number] For urgent mental health crisis needs please contact Mobile Crisis Outreach Team Friday through Friday 8:30a to 5:00pm. Mobile Crisis Outreach Team [address] [place] [address]
[2021-04-10 13:20] LABS: TESTOSTERONE, FREE, DIRECT 2.6 pg/mL (0.0-4.2)
== END 2021-04-09 14:05 | disposition home or self-care (01) | DRG 751 ==
LOC: ER 14:54 → ED HOLD 03-29 15:10 → ADULT MH 03-30 00:05
PROVIDERS: ADMIT Psychiatry & Neurology Psychiatry; ATTEND Psychiatry & Neurology Psychiatry
DX: F33.9 Major depressive disorder, recurrent, unspecified (principal); R45.851 Suicidal ideations; E11.9 Type 2 diabetes mellitus without complications; Z20.822 Contact with and (suspected) exposure to COVID-19; I10 Essential (primary) hypertension; F43.10 Post-traumatic stress disorder, unspecified; F90.9 Attention-deficit hyperactivity disorder, unspecified type; F17.210 Nicotine dependence, cigarettes, uncomplicated; F43.20 Adjustment disorder, unspecified; F60.9 Personality disorder, unspecified; G47.30 Sleep apnea, unspecified; Z79.899 Other long term (current) drug therapy; Z88.8 Allergy status to other drugs, medicaments and biological substances; Z91.410 Personal history of adult physical and sexual abuse
CPT/HCPCS: 36415; 80053; 80061; 80305; 80320; 81003; 82670; 82679; 83036; 84144; 84270; 84402; 84443; 85025; 87081; 87635; 99285; C9803; G0378; J1630; J2060; J3490

== ENCOUNTER 2021-04-16 12:22 | Emergency (ER) | payer SELFPAY ==
[~2021-04-16] VITALS: Ht 175.3 cm; Wt 85.0 kg
[~2021-04-16 12:22] MED LIST changes: -BENZ1TAB7 PO; -BUPR150T8 PO; -FLUO40CA PO; +MIRT-88 PO; -QUET-1 PO; +TIAG4TAB34 PO; -VENL25TA48 PO; +VENL75CA61 PO; +[UNRECOGNIZED DRUG - CODE] TOP; +gabapentin capsule PO
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
[2021-04-16 13:07] LABS: BASOPHILS % (AUTO) 0.2 % (0-1); EOSINOPHILS % (AUTO) 0.3 % (0-6); HEMOGLOBIN 12.1 g/dl (12.0-16.0); LYMPHOCYTES # (AUTO) 1.1 X10'3 (1.1-4.8); LYMPHOCYTES % (AUTO) 11.4 % (21-51); MEAN CORPUSCULAR HGB CONC 33.6 g/dL (33.0-36.5); MEAN CORPUSCULAR VOLUME 89.3 FL (78-98); MEAN PLATELET VOLUME 6.3 FL (7.4-10.4); MONOCYTES # (AUTO) 0.5 X10'3 (0-0.9); MONOCYTES % (AUTO) 4.9 % (2-12); NEUTROPHILS # (AUTO) 8.3 X10'3 (1.8-7.7); NEUTROPHILS % (AUTO) 83.2 % (42-75); PLATELET COUNT 302 X10'3 (140-440); RED BLOOD COUNT 4.03 X10'6 (4.20-5.60); RED CELL DISTRIBUTION WIDTH 13.8 % (11.5-14.5)
[2021-04-16 13:20] LABS: ALANINE AMINOTRANSFERASE 43 U/L (12-78); ALBUMIN 3.8 G/DL (3.4-5.0); ALBUMIN/GLOBULIN RATIO 1.1 (1.1-1.5); ALKALINE PHOSPHATASE 74 IU/L (46-116); ANION GAP 8 (8-16); ASPARTATE AMINO TRANSFERASE 19 U/L (10-37); BILIRUBIN,TOTAL 0.2 MG/DL (0.1-1.0); BLOOD UREA NITROGEN 11 MG/DL (7-18); BUN/CREATININE RATIO 15.5 (6.6-38.0); CALCIUM 8.6 MG/DL (8.5-10.1); CHLORIDE 106 MMOL/L (99-107); CREATININE 0.71 MG/DL (0.40-0.90); ETHANOL < 0.010 GM/DL (0.0-0.010); GLUCOSE 101 MG/DL (70-104); POTASSIUM 4.1 MMOL/L (3.5-5.1); SODIUM 141 MMOL/L (135-145); TOTAL CARBON DIOXIDE 26.8 MMOL/L (24-32); TOTAL PROTEIN 7.4 G/DL (6.4-8.2); eGFR > 90 ML/MIN
--- NOTE | 2021-04-16 13:30 | NUR ---
Patient did not eat any of her lunch. No distress observed at this time. Continue to monitor.
[2021-04-16 14:00] LABS: CLARITY,URINE CLEAR (Clear); COLOR,URINE YELLOW (Yellow); GLUCOSE, URINE NEGATIVE (Neg); KETONES,URINE NEGATIVE (Neg); LEUKOCYTE ESTERASE ,URINE NEGATIVE (Neg); NITRITES, URINE NEGATIVE (Neg); OCCULT BLOOD,URINE NEGATIVE (Neg); PH,URINE 6.5 (4.8-8.0); PROTEIN,URINE NEGATIVE (Neg); UA COLLECTION TYPE CLN CATCH MIDSTREAM; UROBILINOGEN,URINE 0.2 E.U/dL (0.2-1.0)
[2021-04-16 14:06] LABS: URINE AMPHETAMINE SCREEN NEGATIVE (Neg); URINE BARBITUATE SCREEN NEGATIVE (Neg); URINE BENZODIAZEPINES SCREEN NEGATIVE (Neg); URINE CANNABINOID SCREEN POSITIVE (Neg); URINE COCAINE SCREEN NEGATIVE (Neg); URINE METHADONE SCREEN NEGATIVE (Neg); URINE OPIATE SCREEN NEGATIVE (Neg); URINE PHENCYCLIDINE SCREEN NEGATIVE (Neg)
[2021-04-16] MEDS ORDERED: HYDR-3965 PO (14:08)
[2021-04-16] MEDS ORDERED: NAPR-56 PO (14:08)
[2021-04-16] MEDS ORDERED: TADA10TA PO (14:08)
--- NOTE | 2021-04-16 14:40 | NUR ---
Patient laying with her head on the foot board looking at the nurse's station. Patient states she needs company. RN and tech busy at the moment. No distress observed. Continue to monitor.
--- NOTE | 2021-04-16 16:00 | NUR ---
Registration, Shani, with patient. Patient initially refused to speak but the second try patient did give the information to registration. Continue to monitor.
[2021-04-16] MEDS ORDERED: GABA300C PO (16:39)
[2021-04-16] MEDS ORDERED: VENL75CA61 PO ×2 (16:39→16:53)
[2021-04-16] MEDS ORDERED: TIAG4TAB34 PO (16:45)
[2021-04-16] MEDS ORDERED: MIRT-88 PO (16:45)
--- NOTE | 2021-04-16 17:49 | NUR ---
Patient states she is remembering past trauma that she can't shut off.
--- NOTE | 2021-04-16 18:26 | NUR ---
Pt sitting in his bed eating dinner at change of shift. Calling out from his bed saying "my head is doing weird things like thinking weird stuff i dont want to think." Samantha Wilson said hello to him and he said "I dont like you! You took my dog!"
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
[2021-04-16] MEDS ORDERED: diphenhydrAMINE 50 mg/ml inj IM ONE (18:50)
[2021-04-16] MEDS ORDERED: haloperidol lactate 5mg/ml inj IM ONE (18:50)
[2021-04-16] MEDS ORDERED: LORazepam 2 mg/ml vial IM ONE (18:50)
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
[2021-04-16] MEDS ORDERED: NICOTINE POLACRILEX 2 MG LOZENGE BC PRN (19:40)
--- NOTE | 2021-04-16 19:43 | NUR ---
pt is saying he needs to have nicotine 24/ and needs a patch and lozenge. Nicotine ordered. Pt is given a lozenge tonight and told he can start a patch in the morning. Pt states he doesnt want to wear a green shirt because its a man's scrub top and he wants a more feminine top.
--- NOTE | 2021-04-16 19:52 | NUR ---
pt is complaining about anxiety but only wants clonopin or a nicotine patch saying he is too anxious to color because he needs something symetrical. pt was given nicotine lozenge.
[2021-04-16] MEDS ORDERED: EFLORNITHINE HCL TOP SCH (20:00)
[2021-04-16] MEDS ORDERED: TIAGABINE 4 MG PO SCH (20:00)
[2021-04-16] MEDS ORDERED: progesterone, micronized 100mg capsule PO SCH (21:00)
[2021-04-16] MEDS ORDERED: gabapentin 300mg capsule PO SCH (21:00)
[2021-04-16] MEDS ORDERED: gabapentin 300mg capsule PO ONE (21:00)
[2021-04-16] MEDS ORDERED: mirtazapine 15mg tablet PO SCH (21:00)
[2021-04-16] MEDS ORDERED: traZODone 50mg tablet PO SCH (21:00)
--- NOTE | 2021-04-16 21:13 | NUR ---
pt is making multiple requests on medications, asking for clonazepam and ambien stating remeron doesnt help him sleep. Pt states he is allergic to vistaril, and benadryl. Spoke with Jean Claude Melara who recommends NO controlled substances at this time. Discussed with ER provider and ordered trazodone hsmr for sleep.
--- NOTE | 2021-04-17 00:46 | NUR ---
pt is asleep rr even and unlabored no s/s distress.
--- NOTE | 2021-04-17 01:36 | NUR ---
pt is laying on her back asleep. RR even and unlabored no s/s distress.
--- NOTE | 2021-04-17 04:53 | NUR ---
Pt is asleep, rr even and unlabored
[2021-04-17 06:04] VITALS: BP 108/60
--- NOTE | 2021-04-17 06:34 | NUR ---
Assumed care recieved report from Jing CARNES, patient resting in bed
[2021-04-17] MEDS ORDERED: nicotine 21mg patch - 24 hr TD ONE (08:00)
[2021-04-17] MEDS ORDERED: dutasteride 0.5 MG capsule PO SCH (08:00)
[2021-04-17] MEDS ORDERED: venlafaxine XR 75mg capsule (Q24H) PO SCH (08:00)
[2021-04-17] MEDS ORDERED: gabapentin 300mg capsule PO SCH (08:00)
--- NOTE | 2021-04-17 08:05 | NUR ---
Breakfast tray set at bedside patient still sleeping
--- NOTE | 2021-04-17 08:57 | NUR ---
0855 D/C to car with follow up care with [facility], patient is getting to car via Taxi provided by [facility]. Pateint refused to sign paper, all property returned to patient.
[2021-04-19] MEDS ORDERED: ESTRADIOL VALERATE IM SCH (08:00)
== END 2021-04-17 09:04 | disposition home or self-care (01) ==
LOC: ER 12:23
DX: F60.3 Borderline personality disorder (principal); R45.851 Suicidal ideations
CPT/HCPCS: 36415; 80053; 80305; 80320; 81003; 85025; 99285

== ENCOUNTER 2021-06-03 17:01 | Emergency (ER) | payer MEDICAID ==
[~2021-06-03] VITALS: Ht 175.3 cm; Wt 85.0 kg
[~2021-06-03 17:01] MED LIST changes: +GABA300C PO; -PROG200C11 PO; +PROG200C11 PR; -gabapentin capsule PO
[2021-06-03] MEDS ORDERED: LORazepam 1 MG tablet PO ONE (17:15)
[2021-06-03 17:53] LABS: BASOPHILS # (AUTO) 0.1 X10'3 (0-0.2); BASOPHILS % (AUTO) 0.8 % (0-1); EOSINOPHILS % (AUTO) 0.1 % (0-6); HEMATOCRIT 36.8 % (35.0-45.0); HEMOGLOBIN 12.4 g/dl (12.0-16.0); LYMPHOCYTES # (AUTO) 1.3 X10'3 (1.1-4.8); MEAN CORPUSCULAR HEMOGLOBIN 29.4 PG (27.0-31.0); MEAN CORPUSCULAR HGB CONC 33.7 g/dL (33.0-36.5); MEAN CORPUSCULAR VOLUME 87.3 FL (78-98); MEAN PLATELET VOLUME 7.4 FL (7.4-10.4); MONOCYTES # (AUTO) 0.4 X10'3 (0-0.9); MONOCYTES % (AUTO) 4.4 % (2-12); NEUTROPHILS # (AUTO) 7.9 X10'3 (1.8-7.7); NEUTROPHILS % (AUTO) 81.7 % (42-75); PLATELET COUNT 261 X10'3 (140-440); RED BLOOD COUNT 4.21 X10'6 (4.20-5.60); RED CELL DISTRIBUTION WIDTH 12.5 % (11.5-14.5); WHITE BLOOD COUNT 9.6 X10'3 (4.5-11.0)
[2021-06-03 17:55] LABS: URINE AMPHETAMINE SCREEN NEGATIVE (Neg); URINE BARBITUATE SCREEN NEGATIVE (Neg); URINE BENZODIAZEPINES SCREEN NEGATIVE (Neg); URINE CANNABINOID SCREEN POSITIVE (Neg); URINE COCAINE SCREEN NEGATIVE (Neg); URINE METHADONE SCREEN NEGATIVE (Neg); URINE OPIATE SCREEN NEGATIVE (Neg); URINE PHENCYCLIDINE SCREEN NEGATIVE (Neg)
[2021-06-03 18:01] LABS: ALANINE AMINOTRANSFERASE 32 U/L (12-78); ALBUMIN 3.5 G/DL (3.4-5.0); ALBUMIN/GLOBULIN RATIO 1.1 (1.1-1.5); ANION GAP 7 (8-16); ASPARTATE AMINO TRANSFERASE 18 U/L (10-37); BILIRUBIN,TOTAL 0.2 MG/DL (0.1-1.0); BLOOD UREA NITROGEN 14 MG/DL (7-18); BUN/CREATININE RATIO 19.4 (6.6-38.0); CALCIUM 8.4 MG/DL (8.5-10.1); CHLORIDE 104 MMOL/L (99-107); CREATININE 0.72 MG/DL (0.40-0.90); GLUCOSE 114 MG/DL (70-104); SODIUM 139 MMOL/L (135-145); TOTAL CARBON DIOXIDE 27.7 MMOL/L (24-32); TOTAL PROTEIN 6.8 G/DL (6.4-8.2); eGFR > 90 ML/MIN
[2021-06-03 18:02] LABS: ALKALINE PHOSPHATASE 58 IU/L (46-116); ETHANOL < 0.010 GM/DL (0.0-0.010)
[2021-06-03] MEDS ORDERED: RISP2TAB85 PO (22:23)
[2021-06-03] MEDS ORDERED: DIVA-81 PO (22:23)
[2021-06-03] MEDS ORDERED: zolpidem 5mg tablet PO ONE (22:35)
[2021-06-03] MEDS ORDERED: ibuprofen tablet 400 MG TABLET PO ONE (22:40)
[2021-06-03] MEDS ORDERED: AMPH30CA3 PO (23:13)
[2021-06-03] MEDS: risperiDONE 2mg tablet PO SCH (23:30)
[2021-06-03] MEDS: divalproex sod 250mg ER (24-hour) tablet PO SCH (23:30)
[2021-06-03] MEDS ORDERED: mirtazapine 15mg tablet PO SCH (23:30)
--- NOTE | 2021-06-04 07:35 | NUR ---
PT HAS BEEN RESTING WITH EYES CLOSED, EFFORTLESS RESPIRATIONS OBSERVED.
[2021-06-04] MEDS ORDERED: ESTRADIOL VALERATE 40 MG/ML IM SCH (08:00)
[2021-06-04] MEDS: risperiDONE 2mg tablet PO SCH (08:00)
[2021-06-04] MEDS: divalproex sod 250mg ER (24-hour) tablet PO SCH (08:00)
[2021-06-04] MEDS ORDERED: dutasteride 0.5 MG capsule PO SCH (08:00)
[2021-06-04] MEDS ORDERED: EFLORNITHINE HCL TP SCH (08:00)
--- NOTE | 2021-06-04 09:08 | NUR ---
PACKET FAXED TO [facility]
--- NOTE | 2021-06-04 10:30 | NUR ---
FIRST CONTACT WITH PT, FOUND RESTING IN BED. PT IS IN GREEN GOWN, ON MH HOLD AND AWAITING PLACEMENT. NAD.
--- NOTE | 2021-06-04 11:25 | NUR ---
PT REQUESTING MOTRIN FOR HEADACHE. WILL CARRY OUT.
--- NOTE | 2021-06-04 14:15 | NUR ---
MENTAL HEALTH NURSE AT BEDSIDE, STATES HE WILL DISCHARGE PT. HE IS WORKING ON A 10-DAY PLACEMENT D/T DX OF [employer].
[2021-06-04 14:40] VITALS: BP 125/89
== END 2021-06-04 16:18 | disposition home or self-care (01) ==
LOC: ER 17:03
DX: U07.1 COVID-19 (principal); R45.851 Suicidal ideations; F60.4 Histrionic personality disorder; F60.3 Borderline personality disorder; F32.9 Major depressive disorder, single episode, unspecified; G47.30 Sleep apnea, unspecified; F12.90 Cannabis use, unspecified, uncomplicated; Z72.89 Other problems related to lifestyle; Z79.899 Other long term (current) drug therapy
CPT/HCPCS: 36415; 80053; 80305; 80320; 85025; 87635; 99285; C9803

== ENCOUNTER 2021-11-12 15:43 | Emergency (ER) | payer MEDICAID, SELFPAY ==
[~2021-11-12] VITALS: Ht 175.3 cm; Wt 93.6 kg
[~2021-11-12 15:43] MED LIST changes: +AMPH30CA3 PO; +DIVA-81 PO; -ESTR40VI4 IM; +ESTR40VI7 IM; -GABA300C PO; +RISP2TAB85 PO; -TIAG4TAB34 PO; -VENL75CA61 PO
[2021-11-12] MEDS ORDERED: TETanus/Pertussis (Acell)/Diphther VAC/PF (Tdap-Adult) 0.5ml syringe IMVAC ONE (16:10)
[2021-11-12] MEDS ORDERED: LISD60CA PO (16:27)
[2021-11-12] MEDS ORDERED: VENL75TA90 PO (16:27)
[2021-11-12] MEDS ORDERED: AMPH30TA4 PO (16:27)
[2021-11-12] MEDS ORDERED: PREG150C PO (16:27)
[2021-11-12] MEDS ORDERED: CLON1TAB95 PO (16:27)
[2021-11-12] MEDS ORDERED: GABA300C PO (16:27)
[2021-11-12] MEDS ORDERED: FERR325T28 PO (16:27)
[2021-11-12 16:30] LABS: CLARITY,URINE CLEAR (Clear); COLOR,URINE YELLOW (Yellow); GLUCOSE, URINE NEGATIVE (Neg); KETONES,URINE NEGATIVE (Neg); LEUKOCYTE ESTERASE ,URINE NEGATIVE (Neg); NITRITES, URINE NEGATIVE (Neg); OCCULT BLOOD,URINE NEGATIVE (Neg); PROTEIN,URINE NEGATIVE (Neg); UROBILINOGEN,URINE 0.2 E.U/dL (0.2-1.0)
[2021-11-12 16:33] LABS: URINE AMPHETAMINE SCREEN NEGATIVE (Neg); URINE BARBITUATE SCREEN NEGATIVE (Neg); URINE BENZODIAZEPINES SCREEN NEGATIVE (Neg); URINE CANNABINOID SCREEN NEGATIVE (Neg); URINE COCAINE SCREEN NEGATIVE (Neg); URINE METHADONE SCREEN NEGATIVE (Neg); URINE OPIATE SCREEN NEGATIVE (Neg); URINE PHENCYCLIDINE SCREEN NEGATIVE (Neg)
[2021-11-12 16:38] LABS: UA COLLECTION TYPE CLN CATCH MIDSTREAM
[2021-11-12 16:40] LABS: BASOPHILS % (AUTO) 0.4 % (0-1); EOSINOPHILS # (AUTO) 0.1 X10'3 (0-0.9); EOSINOPHILS % (AUTO) 0.8 % (0-6); HEMATOCRIT 37.8 % (35.0-45.0); HEMOGLOBIN 12.3 g/dl (12.0-16.0); LYMPHOCYTES # (AUTO) 1.8 X10'3 (1.1-4.8); LYMPHOCYTES % (AUTO) 21.1 % (21-51); MEAN CORPUSCULAR HEMOGLOBIN 27.9 PG (27.0-31.0); MEAN CORPUSCULAR HGB CONC 32.7 g/dL (33.0-36.5); MEAN CORPUSCULAR VOLUME 85.5 FL (78-98); MEAN PLATELET VOLUME 7.5 FL (7.4-10.4); MONOCYTES # (AUTO) 0.5 X10'3 (0-0.9); MONOCYTES % (AUTO) 5.9 % (2-12); NEUTROPHILS # (AUTO) 6.2 X10'3 (1.8-7.7); NEUTROPHILS % (AUTO) 71.8 % (42-75); PLATELET COUNT 310 X10'3 (140-440); RED BLOOD COUNT 4.42 X10'6 (4.20-5.60); WHITE BLOOD COUNT 8.6 X10'3 (4.5-11.0)
[2021-11-12 16:44] LABS: ALANINE AMINOTRANSFERASE 20 U/L (12-78); ALBUMIN 3.6 G/DL (3.4-5.0); ALBUMIN/GLOBULIN RATIO 1.2 (1.1-1.5); ALKALINE PHOSPHATASE 56 IU/L (46-116); ANION GAP 4 (8-16); ASPARTATE AMINO TRANSFERASE 17 U/L (10-37); BILIRUBIN,TOTAL 0.2 MG/DL (0.1-1.0); BLOOD UREA NITROGEN 12 MG/DL (7-18); CALCIUM 8.3 MG/DL (8.5-10.1); CHLORIDE 106 MMOL/L (99-107); CREATININE 0.86 MG/DL (0.40-0.90); ETHANOL < 0.010 GM/DL (0.0-0.010); GLUCOSE 110 MG/DL (70-104); POTASSIUM 4.2 MMOL/L (3.5-5.1); SODIUM 138 MMOL/L (135-145); TOTAL CARBON DIOXIDE 27.7 MMOL/L (24-32); TOTAL PROTEIN 6.7 G/DL (6.4-8.2); eGFR 78 ML/MIN
--- NOTE | 2021-11-12 17:48 | NUR ---
scmh at bedside to evaluate patient
--- NOTE | 2021-11-12 17:58 | NUR ---
PER [facility], PT WILL BE STAYING TONIGHT WITH PLAN FOR REEVALUATION AND HOPEFULLY SAFETY PLAN TOMORROW WITH PATIENT
[2021-11-12] MEDS ORDERED: dextroamphetamine/amphetamine 10mg tablet PO SCH (20:00)
[2021-11-12] MEDS: dextroamphetamine/amphetamine 5mg tablet PO SCH (20:17)
[2021-11-12] MEDS: pregabalin 75mg capsule PO SCH (20:49)
[2021-11-12] MEDS: clonazePAM 1mg tablet PO SCH (20:49)
[2021-11-12] MEDS ORDERED: gabapentin 300mg capsule PO ONE (20:50)
[2021-11-12] MEDS: venlafaxine 37.5mg tablet PO SCH (21:00)
--- NOTE | 2021-11-12 21:03 | NUR ---
PT MEDICATED WITH [facility]. PT IS CONCERNED ABOUT HER ESTROGEN INJECTION THAT SHE TAKES EVERY FRIDAY. JIMBO INFORMED, STATES THAT HER PHARMACY NEEDS TO BE CONTACTED TO INPUT THE CORRECT DOSAGE SO THIS MED CAN BE CONTINUED, TODAY WAS A HOLIDAY. ALSO IF UNAVAILABLE IN HOUSE PHARMACY, MED CAN BE BROUGHT FROM OUTSIDE TO BE GIVEN TO PT.
--- NOTE | 2021-11-13 00:44 | NUR ---
PT REQUESTS NAPROSYN FOR WRIST PAIN. SEE NEW ORDER
[2021-11-13] MEDS ORDERED: naproxen 500mg tablet PO ONE (00:45)
--- NOTE | 2021-11-13 03:41 | NUR ---
PT GIVEN SANDWICH AND BACK TO BED. NO ACUTE DISTRESS NOTED
--- NOTE | 2021-11-13 06:46 | NUR ---
PT APPEARS TO BE SLEEPING. NO S/S ACUTE DISTRESS. RESPIRATIONS EQUAL AND UNLABORED AND PT LAYING ON BACK
[2021-11-13] MEDS ORDERED: gabapentin 300mg capsule PO SCH (08:00)
[2021-11-13] MEDS ORDERED: lisdexamfetamine dimesylate 60mg capsule PO SCH ×3 (08:00→08:17)
[2021-11-13] MEDS ORDERED: ferrous sulfate 325mg tablet PO SCH (08:00)
[2021-11-13 08:06] VITALS: BP 110/69
[2021-11-13] MEDS: venlafaxine 37.5mg tablet PO SCH (08:27)
[2021-11-13] MEDS: clonazePAM 1mg tablet PO SCH (08:27)
[2021-11-13] MEDS: pregabalin 75mg capsule PO SCH (08:28)
[2021-11-13] MEDS: dextroamphetamine/amphetamine 5mg tablet PO SCH (08:29)
[2021-11-13] MEDS ORDERED: VENL150C58 PO (08:43)
[2021-11-13] MEDS ORDERED: venlafaxine 37.5mg tablet PO SCH (08:53)
[2021-11-13] MEDS ORDERED: VENLAFAXINE 75 MG PO SCH (08:58)
[2021-11-13] MEDS ORDERED: VENLAFAXINE ER 150MG PO SCH (09:00)
--- NOTE | 2021-11-13 09:14 | NUR ---
[facility] at bedside evaluating the patient.
--- NOTE | 2021-11-13 10:31 | NUR ---
PT PACING ON THE PHONE, NO DISTRESS NOTED. CONTINUE TO MONITOR.
[2021-11-14] MEDS ORDERED: VENLAFAXINE ER 75MG PO SCH (08:00)
== END 2021-11-13 10:55 | disposition home or self-care (01) ==
LOC: ER 15:44
DX: S61.512A Laceration without foreign body of left wrist, initial encounter (principal); Z20.822 Contact with and (suspected) exposure to COVID-19; X78.8XXA Intentional self-harm by other sharp object, initial encounter; Y93.89 Activity, other specified; Y92.89 Other specified places as the place of occurrence of the external cause; Y99.8 Other external cause status
CPT/HCPCS: 12002; 36415; 80053; 80305; 80320; 81003; 84443; 85025; 87635; 90471; 90715; 99285; C9803

== ENCOUNTER 2021-11-21 00:50 | Inpatient (IN) | payer MEDICAID ==
[~2021-11-21] VITALS: Ht 175.3 cm; Wt 97.7 kg
[~2021-11-21 00:50] MED LIST changes: -AMPH30CA3 PO; +AMPH30TA4 PO; +CLON1TAB95 PO; -DIVA-81 PO; -DUTA0.5C40 PO; -ESTR40VI7 IM; +FERR325T28 PO; +GABA300C PO; +LISD60CA PO; -MIRT-88 PO; +PREG150C PO; -PROG200C11 PR; -RISP2TAB85 PO; +VENL150C58 PO; +VENL75TA90 PO; -[UNRECOGNIZED DRUG - CODE] TOP
--- NOTE | 2021-11-21 01:45 | NUR ---
CONTACTED POISION CONTROL. POISION CONTROL RECOMMENDED PROLONGED OBSERVATION X24H. Q1H ACCUCHECKS. ALSO RECOMMENDED TYLENOL, ASA, AND TOX SCREEN
[2021-11-21 02:21] LABS: BASOPHILS % (AUTO) 0.3 % (0-1); EOSINOPHILS % (AUTO) 0.2 % (0-6); HEMATOCRIT 36.2 % (35.0-45.0); LYMPHOCYTES # (AUTO) 1.4 X10'3 (1.1-4.8); MEAN CORPUSCULAR HEMOGLOBIN 28.5 PG (27.0-31.0); MEAN CORPUSCULAR HGB CONC 33.1 g/dL (33.0-36.5); MEAN PLATELET VOLUME 7.2 FL (7.4-10.4); MONOCYTES # (AUTO) 0.5 X10'3 (0-0.9); MONOCYTES % (AUTO) 5.5 % (2-12); NEUTROPHILS # (AUTO) 7.2 X10'3 (1.8-7.7); PLATELET COUNT 289 X10'3 (140-440); RED BLOOD COUNT 4.21 X10'6 (4.20-5.60); RED CELL DISTRIBUTION WIDTH 13.3 % (11.5-14.5); WHITE BLOOD COUNT 9.1 X10'3 (4.5-11.0)
[2021-11-21 02:28] LABS: CHLORIDE 106 MMOL/L (99-107); GLUCOSE 103 MG/DL (70-104); POTASSIUM 3.6 MMOL/L (3.5-5.1); SODIUM 139 MMOL/L (135-145); TOTAL CARBON DIOXIDE 24.8 MMOL/L (24-32)
[2021-11-21 02:29] LABS: ALANINE AMINOTRANSFERASE 25 U/L (12-78); ALBUMIN 3.6 G/DL (3.4-5.0); ALBUMIN/GLOBULIN RATIO 1.1 (1.1-1.5); ALKALINE PHOSPHATASE 56 IU/L (46-116); ANION GAP 8 (8-16); ASPARTATE AMINO TRANSFERASE 15 U/L (10-37); BILIRUBIN,TOTAL 0.3 MG/DL (0.1-1.0); BLOOD UREA NITROGEN 12 MG/DL (7-18); BUN/CREATININE RATIO 14.6 (6.6-38.0); CALCIUM 8.5 MG/DL (8.5-10.1); CREATININE 0.82 MG/DL (0.40-0.90); ETHANOL < 0.010 GM/DL (0.0-0.010); eGFR 82 ML/MIN
[2021-11-21 02:31] LABS: ACETAMINOPHEN < 2.0 UG/ML (10-30)
[2021-11-21] MEDS ORDERED: dextrose 50%-water 50ml dispensing syringe IV ONE ×4 (03:35→08:39)
--- NOTE | 2021-11-21 03:35 | NUR ---
SPOKE TO DR MARIEE CONCERNING PT'S BG. GIVEN VO FOR D50. ORDER PLACED
--- NOTE | 2021-11-21 04:50 | NUR ---
SPOKE TO DR MARIEE D/T TO NEW LOW BG. RECIEVED NEW ORDER OF D50 IV NOW PT IS REFUSING TO EAT.
--- NOTE | 2021-11-21 05:27 | NUR ---
PT AGREED TO DRINK APPLE JUICE NOW.
--- NOTE | 2021-11-21 06:08 | NUR ---
PT PROVIDED NEW CONTAINER OF APPLE JUICE WHICH PT DRANK.
--- NOTE | 2021-11-21 06:10 | NUR ---
PT NOW ALSO ATE A FULL CONTAINER OF STRAWBERRY YOGURT
--- NOTE | 2021-11-21 06:30 | NUR ---
FIRST CONTACT WITH PT. FOUND SITTING AT END OF BED WITH FLAT AFFECT. STATES HE WAS TRYING TO KILL HIMSELF. STATES THAT HE HAS NEVER HEARD OF ANYONE TAKING 1000 UNITS OF INSULIN AND LIVING. RR EVEN AND UNLABORED, NO DISTRESS. ORDER FOR D10 BY DR. TNEA, WILL CARRY OUT.
[2021-11-21] MEDS ORDERED: DEXTROSE 10 % AND 0.45 % NACL 1,000 ML IV SCH (06:35)
[2021-11-21 08:01] LABS: URINE AMPHETAMINE SCREEN POSITIVE (Neg); URINE BARBITUATE SCREEN NEGATIVE (Neg); URINE BENZODIAZEPINES SCREEN NEGATIVE (Neg); URINE CANNABINOID SCREEN NEGATIVE (Neg); URINE COCAINE SCREEN NEGATIVE (Neg); URINE METHADONE SCREEN NEGATIVE (Neg); URINE OPIATE SCREEN NEGATIVE (Neg); URINE PHENCYCLIDINE SCREEN NEGATIVE (Neg)
[2021-11-21] MEDS ORDERED: magnesium 4gm in 100ml NS 100 ML IV PRN (08:15)
[2021-11-21] MEDS ORDERED: magnesium hydroxide 30ml (MOM) UD suspension PO PRN (08:15)
[2021-11-21] MEDS ORDERED: magnesium 2GM in 50ml NS 50 ML IV PRN (08:15)
[2021-11-21] MEDS ORDERED: acetaminophen 325mg tablet PO PRN (08:15)
[2021-11-21] MEDS ORDERED: sodium chloride inj. 154 MEQ in Dextrose 10%-water IV solution 961.5 ML IV SCH (08:15)
[2021-11-21] MEDS ORDERED: mag hydrox/Alum hydrox/simeth 30ml oral suspension PO PRN (08:15)
[2021-11-21] MEDS ORDERED: POTASSIUM BICARB 20meq eff tab 20 MEQ TABLET.EFF PO PRN ×2 (08:15)
[2021-11-21] MEDS ORDERED: magnesium Cl slow-release 64mg tablet PO PRN (08:15)
[2021-11-21] MEDS ORDERED: ondansetron/PF 4mg/2ml inj IV PRN (08:15)
[2021-11-21] MEDS ORDERED: potassium CL 10mEq/100ml bag 100 ML IV PRN (08:15)
--- NOTE | 2021-11-21 08:45 | NUR ---
BS 47, D50 PUSHED.
[2021-11-21 09:22] LABS: POTASSIUM 3.5 MMOL/L (3.5-5.1)
--- NOTE | 2021-11-21 10:30 | NUR ---
BS 47. ANOTHER AMP OF D50 GIVEN. ALDO PAGED REGARDING PT CONTINUAL DROPPING OF BS EVEN ON D10 GTT.
[2021-11-21] MEDS ORDERED: glucagon, human recombinant 1mg kit IV ONE ×2 (10:35→12:35)
--- NOTE | 2021-11-21 10:55 | NUR ---
DR. CARLSON AT BEDSIDE.
[2021-11-21] MEDS ORDERED: OLAN2.5T3 PO (12:22)
--- NOTE | 2021-11-21 12:40 | NUR ---
Patient in room PCU 3009. I have received report from TRICE VILA FROM ER and had the opportunity to ask questions and assume patient care.
--- NOTE | 2021-11-21 12:40 | NUR ---
TELEPHONE REPORT TO TRICE BAILEY
[2021-11-21] MEDS ORDERED: DEXT20TA6 PO (13:58)
[2021-11-21] MEDS ORDERED: DEP150I IM (14:10)
[2021-11-21] MEDS ORDERED: OLAN10TA21 PO (14:10)
[2021-11-21] MEDS ORDERED: VENL75TA90 PO (14:10)
[2021-11-21] MEDS ORDERED: ESTR40VI2 IM (14:21)
--- NOTE | 2021-11-21 14:24 | NUR ---
PATIENT BLOOD SUGAR 67, PAGED FOR HYPOGLYCEMIC PROTOCOL, AWAITING CALL BACK
[2021-11-21] MEDS ORDERED: DEXTROSE 15 GM of carb/4 tabs (each vial/BOTTLE has 4 tablets) PO PRN ×2 (14:30)
[2021-11-21] MEDS ORDERED: glucagon, human recombinant 1mg kit SUBCUT PRN (14:30)
[2021-11-21] MEDS ORDERED: dextrose 50%-water 50ml dispensing syringe IV PRN ×2 (14:30)
[2021-11-21 15:00] VITALS: BP 115/71
--- NOTE | 2021-11-21 15:38 | NUR ---
Problems reprioritized. Patient report given, questions answered & plan of care reviewed with TRICE MOREL
[2021-11-21] MEDS ORDERED: LORazepam 2 mg/ml vial IM ONE (16:00)
[2021-11-21] MEDS ORDERED: haloperidol lactate 5mg/ml inj IM ONE (16:00)
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
[2021-11-21] MEDS ORDERED: K and/or MAG REPLACEMENT MC SCH (20:00)
[2021-11-21] MEDS ORDERED: docusate sod 100mg capsule PO SCH (20:00)
[2021-11-22] MEDS ORDERED: enoxaparin 40mg/0.4ml syringe SUBCUT SCH (08:00)
== END 2021-11-21 16:35 | disposition left against medical advice (07) | DRG 817 ==
LOC: ER 00:51 → ED HOLD 08:17 → PCU 3S 14:21
PROVIDERS: ADMIT Family Medicine; ATTEND Family Medicine
DX: T38.3X2A Poisoning by insulin and oral hypoglycemic [antidiabetic] drugs, intentional self-harm, initial encounter (principal); E16.2 Hypoglycemia, unspecified; Z20.822 Contact with and (suspected) exposure to COVID-19; F32.A Depression, unspecified; F12.90 Cannabis use, unspecified, uncomplicated; G47.30 Sleep apnea, unspecified; G62.9 Polyneuropathy, unspecified; R45.1 Restlessness and agitation; Z53.29 Procedure and treatment not carried out because of patient's decision for other reasons; Y92.89 Other specified places as the place of occurrence of the external cause; Z88.8 Allergy status to other drugs, medicaments and biological substances; Z78.1 Physical restraint status
CPT/HCPCS: 36415; 80053; 80305; 80320; 80329; 82948; 83735; 84132; 85025; 99285; G0378; J1610; J3490